=== PATIENT | female | born 1985 | race Caucasian/White ===

== ENCOUNTER 2016-03-22 10:31 | Emergency (ER) | payer OTHER ==
[2016-03-22 10:58] LABS: Collection Type VOID
[2016-03-22 11:03] LABS: COMPLETE URINE MICROSCOPIC? YES
--- NOTE | 2016-03-22 11:03 | ERPHSYRPT ---
- History of Present Illness Time Seen by Provider: 03/22/16 10:45 Source: patient Exam Limitations: no limitations Patient Subjective Stated Complaint: urinary s/s for 2 days Triage Nursing Assessment: frequency with urination for 2 days with minimal output. denies pain with urination. diarrhea stools x4 for past 24 hours. 'it feels like there is a phone vibrating in my crotch area'. 12 weeks with 3rd child Physician History: at 12 weeks uncomplicated now. Prior deliveries d/t FTP with G1. US shows normal per pt. report. She C/O dysuria with frequency now. No vaginal cramping or bleeding. Timing/Duration: day(s) (2) Activites at Onset: none Quality: aching Onset Location: suprapubic Pain Radiation: none Severity of Pain-Max: mild Severity of Pain-Current: mild Sexual intercourse history: non-contributory Modifying Factors: Improves With: nothing Allergies/Adverse Reactions: naproxen Allergy (Verified 03/22/16 10:43) Home Medications: Labetalol HCl 100 mg [Trandate 100 MG] 100 mg PO BID 03/13/16 [History] Vits W-Ca,Fe,FA(<1Mg) [] 1 tab PO DAILY 03/13/16 [History] Hx Tetanus, Diphtheria Vaccination/Date Given: Yes Hx Influenza Vaccination/Date Given: No Hx Pneumococcal Vaccination/Date Given: No - Review of Systems Constitutional: No Symptoms Eyes: No Symptoms Ears, Nose, & Throat: No Symptoms Respiratory: No Symptoms Cardiac: No Symptoms Abdominal/Gastrointestinal: Abdominal Pain Genitourinary Symptoms: Dysuria, Frequency Musculoskeletal: No Symptoms Skin: No Symptoms Neurological: No Symptoms Psychological: No Symptoms Endocrine: No Symptoms Hematologic/Lymphatic: No Symptoms Immunological/Allergic: No Symptoms - Past Medical History Pertinent Past Medical History: Yes Cardiac History: Hypertension Psycho-Social History: Depression - Past Surgical History Past Surgical History: Yes Female Surgical History: Section - Social History Smoking Status: Never smoker Exposure to second hand smoke: Yes Drug Use: none Patient Lives Alone: No - Female History Expected Date of Delivery: 09/30/16 - Nursing Vital Signs Nursing Vital Signs: Initial Vital Signs Temperature 98.2 F Temperature Source Oral Pulse Rate 96 Respiratory Rate 18 Blood Pressure 144/92 Pain Intensity 0 - Physical Exam General Appearance: mild distress Eye Exam: PERRL/EOMI, eyes nml inspection Ears, Nose, Throat Exam: normal ENT inspection, pharynx normal Neck Exam: normal inspection, non-tender, supple, full range of motion Respiratory Exam: normal breath sounds, lungs clear Cardiovascular Exam: regular rate/rhythm, normal heart sounds, normal peripheral pulses Gastrointestinal/Abdomen Exam: soft, normal bowel sounds, tenderness (suprapubic ) Back Exam: CVA tenderness Extremity Exam: normal inspection, normal range of motion Neurologic Exam: alert, oriented x 3, cooperative Skin Exam: normal color, warm, dry SpO2 Interpretation: normal SpO2: 96 Oxygen Delivery: Room Air - Course Nursing assessment & vital signs reviewed: Yes Ordered Tests: Active Orders 24 hr Category Date Time Status Clean Catch Urine Specimen STAT Care 03/22/16 10:46 Active UA Stat Lab 03/22/16 10:46 Ordered - Progress Air Movement: good Blood Culture(s) Obtained: No Antibiotics given: Yes Counseled pt/family regarding: lab results, diagnosis, need for follow-up (OB 1 week) - Departure Time of Disposition: 11:15 Departure Disposition: Home Clinical Impression: UTI (urinary tract infection) in in second trimester Condition: Stable Critical Care Time: No
[2016-03-22 11:11] LABS: Bacteria MODERATE /HPF (NEGATIVE); Epithelial Cells MANY /HPF (FEW); WBC 50-100 /HPF (0-5)
[2016-03-22 11:30] VITALS: BP 148/87; PULSE 95; O2SAT 98
== END 2016-03-22 11:35 | disposition home or self-care (01) ==
LOC: ED 10:31
DX: O23.42 Unspecified infection of urinary tract in pregnancy, second trimester (principal)
CPT/HCPCS: 81000; 99283

== ENCOUNTER 2016-04-17 17:56 | Emergency (ER) | payer OTHER ==
[2016-04-17] MEDS ORDERED: Sodium Chloride 0.9% 1000 ML 1,000 ML IV STA ×2 (18:43→19:46)
[2016-04-17] MEDS ORDERED: Zofran 4 MG/2 ML VIAL IV ONE (18:43)
--- NOTE | 2016-04-17 18:52 | ERPHSYRPT ---
- History of Present Illness Time Seen by Provider: 04/17/16 18:30 Source: patient Exam Limitations: clinical condition Patient Subjective Stated Complaint: pt states she is 16 weeks and began vomiting for the past 2 weeks. pt became concerned today because she began having pelvic pain. denies any vaginal bleeding. pt states she was seen at [facility] ER on 04/14/16 for vomiting after eating seafood. Triage Nursing Assessment: pt pink, warm, dry. abdomen obese. mucus membranes moist. pt afebrile. Physician History: PATIENT IS A -3, PARA-2 16 WEEK GESTATION, COMPLAINS OF NAUSEA OVER THE PAST 2 WEEKS, EMESIS X 2 TODAY, HAS POOR APPETITE, HAS INGESTED VERY LITTLE FLUIDS. DENEIS FEVER, COUGH, DIARRHEA, VAGINAL BLEEDING OR DISCHARGE. Timing/Duration: day(s) Associated Symptoms: nausea, vomiting Allergies/Adverse Reactions: naproxen Allergy (Verified 04/17/16 18:14) Home Medications: Labetalol HCl 100 mg [Trandate 100 MG] 100 mg PO BID 03/13/16 [History] Vits W-Ca,Fe,FA(<1Mg) [] 1 tab PO DAILY 03/13/16 [History] Hx Tetanus, Diphtheria Vaccination/Date Given: Yes (up to date) Hx Influenza Vaccination/Date Given: No Hx Pneumococcal Vaccination/Date Given: No Immunizations Up to Date: Yes - Review of Systems Constitutional: No Fever, No Chills Eyes: No Symptoms Ears, Nose, & Throat: No Symptoms Respiratory: No Symptoms, No Cough, No Dyspnea Cardiac: No Symptoms, No Chest Pain, No Edema, No Syncope Abdominal/Gastrointestinal: Nausea, Vomiting, No Abdominal Pain, No Diarrhea Genitourinary Symptoms: No Symptoms, No Dysuria Musculoskeletal: No Symptoms, No Back Pain, No Neck Pain Skin: No Rash Neurological: No Dizziness, No Focal Weakness, No Sensory Changes Psychological: No Symptoms Endocrine: No Symptoms All Other Systems: Reviewed and Negative - Past Medical History Pertinent Past Medical History: Yes Cardiac History: Hypertension Psycho-Social History: Depression - Past Surgical History Past Surgical History: Yes Female Surgical History: Section - Social History Smoking Status: Former smoker Exposure to second hand smoke: No Drug Use: none Patient Lives Alone: No - Female History Hx Last Menstrual Period: dec 25 2015 Expected Date of Delivery: 09/30/16 Gestational Age: 16 - Nursing Vital Signs Nursing Vital Signs: Initial Vital Signs Temperature 98.5 F Temperature Source Oral Pulse Rate 84 Respiratory Rate 16 Blood Pressure [Right Arm] 136/69 Pain Intensity 3 - Physical Exam General Appearance: no apparent distress, alert Eye Exam: PERRL/EOMI, eyes nml inspection Ears, Nose, Throat Exam: normal ENT inspection, TMs normal, pharynx normal, moist mucous membranes Neck Exam: normal inspection, non-tender, supple, full range of motion Respiratory Exam: normal breath sounds, lungs clear, No respiratory distress Cardiovascular Exam: regular rate/rhythm, normal heart sounds, normal peripheral pulses Gastrointestinal/Abdomen Exam: soft, normal bowel sounds, other (GRAVID, HEART TONES 140'S), No tenderness, No mass Pelvic Exam: not done Back Exam: normal inspection, normal range of motion, No CVA tenderness, No vertebral tenderness Extremity Exam: normal inspection, normal range of motion, pelvis stable Neurologic Exam: alert, oriented x 3, cooperative, normal mood/affect, nml cerebellar function, nml station & gait, sensation nml, No motor deficits Skin Exam: normal color, warm, dry, No rash Lymphatic Exam: No adenopathy SpO2 Interpretation: normal SpO2: 98 Oxygen Delivery: Room Air Ordered Tests: Active Orders 24 hr Category Date Time Status Heart Tones-ED STAT Care 04/17/16 18:46 Active IV Insertion STAT Care 04/17/16 18:43 Active BMP Stat Lab 04/17/16 18:55 Completed CBC W DIFF Stat Lab 04/17/16 18:55 Completed Manual Differential NC Stat Lab 04/17/16 18:55 Completed UA W/ MICROSCOPIC Stat Lab 04/17/16 18:55 Completed Medication Summary Discontinued Medications Generic Name Dose Route Start Last Admin Trade Name Freq PRN Reason Stop Dose Admin Sodium Chloride 1,000 mls @ 999 mls/hr 04/17/16 18:43 04/17/16 19:00 Sodium Chloride 0.9% 1000 Ml IV 04/17/16 19:43 999 mls/hr .Q1H1M STA Administration Sodium Chloride Confirm 04/17/16 18:56 Sodium Chloride 0.9% 1000 Ml Administered 04/17/16 18:57 Dose 1,000 mls @ ud .ROUTE .STK-MED ONE Sodium Chloride 1,000 mls @ 999 mls/hr 04/17/16 19:46 04/17/16 19:52 Sodium Chloride 0.9% 1000 Ml IV 04/17/16 20:46 999 mls/hr .Q1H1M STA Administration Sodium Chloride Confirm 04/17/16 19:49 Sodium Chloride 0.9% 1000 Ml Administered 04/17/16 19:50 Dose 1,000 mls @ ud .ROUTE .STK-MED ONE Ondansetron HCl 4 mg 04/17/16 18:43 04/17/16 19:00 Zofran 4 Mg/2 Ml Vial IV 04/17/16 18:44 4 mg STAT ONE Administration Ondansetron HCl Confirm 04/17/16 18:56 Zofran 4 Mg/2 Ml Vial Administered 04/17/16 18:57 Dose 4 mg .ROUTE .STK-MED ONE Lab/Rad Data: Laboratory Result Diagrams 04/17/16 18:55 04/17/16 18:55 Laboratory Results 04/17/16 04/17/16 04/17/16 Range/Units 18:55 18:55 18:55 WBC 17.7 H (4.0-10.5) K/mm3 RBC 4.25 (4.1-5.4) M/mm3 Hgb 11.3 L (12.0-16.0) gm/dl Hct 35.0 (35-47) % MCV 82.4 (78-100) fl MCH 26.5 (26-32) pg MCHC 32.3 (32-36) g/dl RDW 16.7 H (11.5-14.0) % Plt Count 311 (150-450) K/mm3 MPV 10.5 H (6-9.5) fl Segmented Neutrophils 69 H (36.0-66.0) % Lymphocytes (Manual) 25 (24-44) % Monocytes (Manual) 6 (0.0-12.0) % Platelet Estimate NORMAL (NORMAL) Anisocytosis 1+ Sodium 134 L (136-145) mEq/L Potassium 3.4 L (3.5-5.1) mEq/L Chloride 102 (98-107) mEq/L Carbon Dioxide 24.6 (21-32) mEq/L Anion Gap 10.9 (5-15) MEQ/L BUN 9 (9-20) mg/dL Creatinine 0.68 (0.55-1.30) mg/dl Estimated GFR > 60 ML/MIN Glucose 80 (70-110) MG/DL Calcium 8.8 (8.5-10.1) mg/dL Ur Collection Type CCMS Urine Color YELLOW (YELLOW) Urine Appearance CLEAR (CLEAR) Urine pH 5.5 (5-6) Ur Specific [place] 1.025 (1.005-1.025) Urine Protein NEGATIVE (Negative) Urine Glucose (UA) NEGATIVE (NEGATIVE) mg/dL Urine Ketones NEGATIVE (NEGATIVE) Urine Nitrite NEGATIVE (NEGATIVE) Urine Bilirubin NEGATIVE (NEGATIVE) Urine Urobilinogen 0.2 (0-1) mg/dL Urine WBC (Auto) SMALL (NEGATIVE) Urine RBC (Auto) NEGATIVE (0-5) [place]/ul Urine Microscopic RBC 0-2 (0-2) /HPF Urine Microscopic WBC 2-5 (0-5) /HPF Ur Epithelial Cells MODERATE (FEW) /HPF Urine Bacteria MODERATE (NEGATIVE) /HPF Specimen Received 04-17-16 1921 - Progress Progress: improved Progress Note: 04/17/16 18:51 PATIENT GIVEN IV NORMAL SALINE 1 LITER/HR X 2, ZOFRAN 4MG IV Counseled pt/family regarding: lab results, diagnosis, need for follow-up - Departure Time of Disposition: 21:10 Departure Disposition: Home Clinical Impression: HYPEREMESIS GRAVIDARUM Condition: Stable Critical Care Time: No Additional Instructions: DRINK PLENTY OF FLUIDS. ZOFRAN 4MG EVERY 4 HOURS FOR NAUSEA AND PHENERGAN SUPPOSITORY 25MG EVERY 4 HOURS NEEDED FOR NAUSEA. CONSULT YOUR FAMILY PHYSICIAN FOR EVALUATION IN 1 WEEK. Prescriptions: Ondansetron [Zofran Odt] 4 mg PO Q4H PRN PRN #6 tab.rapdis PRN Reason: Nausea Promethazine HCl 25 mg Supp [Phenergan 25 mg Supp] 25 mg NV Q4H PRN PRN # 10 supp.rect PRN Reason: Nausea
[2016-04-17] MEDS ORDERED: Sodium Chloride 0.9% 1000 ML 1,000 ML ONE ×2 (18:56→19:49)
[2016-04-17] MEDS ORDERED: Zofran 4 MG/2 ML VIAL ONE (18:56)
[2016-04-17 19:02] LABS: Mean Cell Volume 82.4 fl (78-100); Mean Platelet Volume 10.5 fl (6-9.5); Platelet Count 311 K/mm3 (150-450); Red Blood Count 4.25 M/mm3 (4.1-5.4); Red Cell Distribution Width 16.7 % (11.5-14.0); White Blood Count 17.7 K/mm3 (4.0-10.5)
[2016-04-17 19:05] LABS: Mean Corpuscular Hemoglobin 26.5 pg (26-32)
[2016-04-17 19:19] LABS: ANION GAP 10.9 MEQ/L (5-15); BLOOD UREA NITROGEN 9 mg/dL (9-20); CHLORIDE 102 mEq/L (98-107); Carbon Dioxide 24.6 mEq/L (21-32); Glucose 80 MG/DL (70-110); Potassium 3.4 mEq/L (3.5-5.1); SODIUM 134 mEq/L (136-145)
[2016-04-17 19:32] LABS: COMPLETE URINE MICROSCOPIC? YES; Collection Type CCMS; Ph 5.5 (5-6)
[2016-04-17 19:33] LABS: Bacteria MODERATE /HPF (NEGATIVE); Epithelial Cells MODERATE /HPF (FEW)
[2016-04-17 20:18] LABS: Total Cells Counted 100
[2016-04-17 20:20] LABS: ANISOCYTOSIS 1+; Platelet Estimate NORMAL (NORMAL)
[2016-04-17 21:28] VITALS: BP 127/80; PULSE 75; O2SAT 100
== END 2016-04-17 21:27 | disposition home or self-care (01) ==
LOC: ED 17:56
DX: O21.0 Mild hyperemesis gravidarum (principal)
CPT/HCPCS: 36000; 36415; 80048; 81000; 85025; 96360; 96361; 96374; 99283; J2405

== ENCOUNTER 2016-05-23 10:20 | Observation (INO) | payer OTHER ==
[2016-05-23 11:32] LABS: Bacteria FEW /HPF (NEGATIVE); COMPLETE URINE MICROSCOPIC? YES; Collection Type VOID; Epithelial Cells MODERATE /HPF (FEW); Ph 5.5 (5-6); WBC 15-25 /HPF (0-5)
[2016-05-23 13:12] VITALS: BP 129/71; PULSE 80
== END 2016-05-23 12:30 | disposition home or self-care (01) ==
LOC: OB 10:20
PROVIDERS: ADMIT Family Medicine; ATTEND Family Medicine
DX: Z34.82 Encounter for supervision of other normal pregnancy, second trimester (principal)
CPT/HCPCS: 80307; 81000; G0378

== ENCOUNTER 2016-05-27 08:53 | Observation (INO) | payer OTHER ==
[2016-05-27 09:21] VITALS: BP 135/74; PULSE 92
[2016-05-27 10:12] LABS: COMPLETE URINE MICROSCOPIC? YES; Collection Type VOID; Ph 5.5 (5-6)
[2016-05-27 10:13] LABS: Bacteria FEW /HPF (NEGATIVE); Epithelial Cells FEW /HPF (FEW); WBC 15-25 /HPF (0-5)
--- NOTE | 2016-05-27 21:56 | XRAY ---
Indication: Vaginal bleeding. Two-dimensional OB ultrasound performed. Comparison: May 04, 2016. Again there is a single viable intrauterine in variable lie. Normal four chamber heart with heart rate 131 bpm. Normal three-vessel cord and cord insertion previously documented. Images of the head, spine, stomach, kidneys, and bladder appear unremarkable. Placenta is anterior without abruption/previa. Cervical length measures 4.7 cm. BPD measures 5.52 cm corresponding to 22 weeks 6 days. HC measures 20.14 cm corresponding to 22 weeks 2 days. AC measures 16.94 cm corresponding to 22 weeks 0 days. FL measures 3.68 cm corresponding to 21 weeks 5 days. GATITO is 16.4 cm. Impression: Again single viable intrauterine with mean gestational age 22 weeks 2 days. No new/acute findings. Comment: Preliminary report was given.
== END 2016-05-27 12:45 | disposition home or self-care (01) ==
LOC: OB 08:53
PROVIDERS: ADMIT Family Medicine; ATTEND Family Medicine
DX: Z34.82 Encounter for supervision of other normal pregnancy, second trimester (principal)
CPT/HCPCS: 76805; 80307; 81000; G0378

== ENCOUNTER 2016-06-08 02:35 | Observation (INO) | payer OTHER ==
[2016-06-08] MEDS ORDERED: NORCO 5/325 MG PO ONE (03:31)
[2016-06-08] MEDS ORDERED: APRESOLINE 20 MG/ML INJ IV PRN (03:32)
[2016-06-08] MEDS ORDERED: NORCO 5/325 MG ONE (03:34)
[2016-06-08 04:02] LABS: Mean Cell Volume 84.8 fl (78-100); Mean Corpuscular Hemoglobin 27.1 pg (26-32); Mean Platelet Volume 10.7 fl (6-9.5); Platelet Count 281 K/mm3 (150-450); Red Blood Count 3.87 M/mm3 (4.1-5.4); Red Cell Distribution Width 15.2 % (11.5-14.0)
[2016-06-08 04:28] LABS: ALBUMIN 2.5 g/dL (3.4-5.0); ALKALINE PHOSPHATASE 51 U/L (46-116); ANION GAP 14.2 MEQ/L (5-15); BLOOD UREA NITROGEN 9 mg/dL (9-20); CHLORIDE 105 mEq/L (98-107); Carbon Dioxide 24.3 mEq/L (21-32); Glucose 109 MG/DL (70-110); Potassium 3.5 mEq/L (3.5-5.1); SGOT/AST 16 U/L (15-37); SGPT/ALT 14 U/L (12-78); SODIUM 140 mEq/L (136-145); Total Protein 6.6 gm/dL (6.4-8.2)
[2016-06-08 04:36] LABS: Bacteria FEW /HPF (NEGATIVE); COMPLETE URINE MICROSCOPIC? YES; Collection Type CLEAN CATCH; Epithelial Cells MODERATE /HPF (FEW); Mucus SLIGHT /HPF (NEGATIVE)
[2016-06-08 04:45] LABS: BILIRUBIN,TOTAL < 0.1 mg/dL (0.2-1.0)
[2016-06-08 05:40] LABS: ATYPICAL LYMPHS 2 %; Eosinophil 1 % (0.00-3.0); Platelet Estimate NORMAL (NORMAL); Total Cells Counted 100
[2016-06-08 09:02] VITALS: BP 143/75; PULSE 93
--- NOTE | 2016-06-08 09:10 | PCM.SSS ---
History of Present Illness - Chief Complaint Chief Complaint: OB CHECK History of Present Illness: is a 31 year old female at 23 5/7 wks EGA with chronic hypertension who presented last night with headache, she also complained of visual changes. She is feeling much better overnight, bp has been 130's or 140' s this morning. labs are reassuring. - Review of Systems Constitutional: No Fever, No Chills Respiratory: No Cough, No Short Of Breath Cardiac: No Chest Pain, No Edema, No Syncope Abdominal/Gastrointestinal: No Abdominal Pain, No Nausea, No Vomiting, No Diarrhea Genitourinary Symptoms: No Dysuria Neurological: Headache All Other Systems: Reviewed and Negative Medications & Allergies Home Medications: Home Medication List Labetalol HCl 100 mg [Trandate 100 MG] 100 mg PO BID 03/13/16 [History Confirmed 06/08/16] Vits W-Ca,Fe,FA(<1Mg) [] 1 tab PO DAILY 03/13/16 [History Confirmed 06/08/16] Allergies/Adverse Reactions: Allergies Allergy/AdvReac Type Severity Reaction Status Date / Time naproxen Allergy Verified 06/08/16 03:03 - Past Medical History Past Medical History: Yes Cardiac History: Hypertension Pyscho-Social History: Depression Comment: reports she used to have depression. no diff at this time per pt report - Female History Expected Date of Delivery: 09/30/16 - Past Surgical History Past Surgical History: Yes Female Surgical History: Section Other Surgical History: 2 c/sections - Social History Smoking Status: Never smoker Exposure to second hand smoke: No Alcohol: None Drug Use: none - Physical Exam Vital Signs: Vital Signs - 24 hr Temp Pulse Resp BP BP 06/08/16 08:00 98.8 F 93 H 18 143/75 06/08/16 05:55 87 139/72 06/08/16 04:51 109 H 142/74 06/08/16 03:37 89 136/76 06/08/16 03:07 97.5 F 88 160/80 General Appearance: no apparent distress, alert Eye Exam: PERRL/EOMI, eyes nml inspection Respiratory Exam: normal breath sounds, lungs clear, No respiratory distress Cardiovascular Exam: regular rate/rhythm, normal heart sounds, normal peripheral pulses Gastrointestinal/Abdomen Exam: soft, normal bowel sounds, No tenderness, No mass Extremity Exam: normal inspection, normal range of motion, pelvis stable, other (DTR 2+BLE), No pedal edema Skin Exam: normal color, warm, dry, No rash Results - Labs Lab/Micro Results: Lab Results-Last 24 Hours 06/08/16 06/08/16 06/08/16 Range/Units 03:30 03:45 03:45 WBC 16.0 H (4.0-10.5) K/mm3 RBC 3.87 L (4.1-5.4) M/mm3 Hgb 10.5 L (12.0-16.0) gm/dl Hct 32.8 L (35-47) % MCV 84.8 (78-100) fl MCH 27.1 (26-32) pg MCHC 32.0 (32-36) g/dl RDW 15.2 H (11.5-14.0) % Plt Count 281 (150-450) K/mm3 MPV 10.7 H (6-9.5) fl Segmented Neutrophils 64 (36.0-66.0) % Lymphocytes (Manual) 25 (24-44) % Monocytes (Manual) 8 (0.0-12.0) % Eosinophils (Manual) 1 (0.00-3.0) % Differential Comment NORMAL Atypical Lymphocytes 2 % Platelet Estimate NORMAL (NORMAL) Sodium 140 (136-145) mEq/L Potassium 3.5 (3.5-5.1) mEq/L Chloride 105 (98-107) mEq/L Carbon Dioxide 24.3 (21-32) mEq/L Anion Gap 14.2 (5-15) MEQ/L BUN 9 (9-20) mg/dL Creatinine 0.68 (0.55-1.30) mg/dl Estimated GFR > 60 ML/MIN Glucose 109 (70-110) MG/DL Uric Acid 3.3 (2.6-6.0) mg/dL Calcium 8.2 L (8.5-10.1) mg/dL Total Bilirubin < 0.1 L (0.2-1.0) mg/dL AST 16 (15-37) U/L ALT 14 (12-78) U/L Alkaline Phosphatase 51 (46-116) U/L Serum Total Protein 6.6 (6.4-8.2) gm/dL Albumin 2.5 L (3.4-5.0) g/dL Ur Collection Type CLEAN CATCH Urine Color YELLOW (YELLOW) Urine Appearance CLOUDY (CLEAR) Urine pH 5.0 (5-6) Ur Specific [place] 1.020 (1.005-1.025) Urine Protein 30 (Negative) Urine Glucose (UA) NEGATIVE (NEGATIVE) mg/dL Urine Ketones NEGATIVE (NEGATIVE) Urine Nitrite NEGATIVE (NEGATIVE) Urine Bilirubin NEGATIVE (NEGATIVE) Urine Urobilinogen 0.2 (0-1) mg/dL Urine WBC (Auto) TRACE (NEGATIVE) Urine RBC (Auto) NEGATIVE (0-5) [place]/ul Urine Microscopic WBC 2-5 (0-5) /HPF Ur Epithelial Cells MODERATE (FEW) /HPF Urine Bacteria FEW (NEGATIVE) /HPF Urine Mucus SLIGHT (NEGATIVE) /HPF Specimen Received 06/08/16:0330 Assessment/Plan (1) Chronic hypertension Current Visit: Yes Status: Acute Assessment & Plan: workup benign, better control at this time. will continue Labetalol 100mg bid. advised bedrest Code(s): I10 - ESSENTIAL (PRIMARY) HYPERTENSION (2) Current Visit: Yes Status: Acute Code(s): Z33.1 - STATE, INCIDENTAL Hospital Summary - Vitals & Intake/Output Vital Signs: Vital Signs Temperature 98.8 F 06/08/16 08:00 Pulse Rate 93 H 06/08/16 08:00 Respiratory Rate 18 06/08/16 08:00 Blood Pressure 143/75 06/08/16 08:00 O2 Sat by Pulse Oximetry Intake & Output: Intake & Output 06/05/16 06/06/16 06/07/16 06/08/16 11:59 11:59 11:59 11:59 Weight 122.47 kg - Lab Result Diagrams: 06/08/16 03:45 06/08/16 03:45 Lab Results-Last 24 Hrs: Lab Results-Last 24 Hours 06/08/16 06/08/16 06/08/16 Range/Units 03:30 03:45 03:45 WBC 16.0 H (4.0-10.5) K/mm3 RBC 3.87 L (4.1-5.4) M/mm3 Hgb 10.5 L (12.0-16.0) gm/dl Hct 32.8 L (35-47) % MCV 84.8 (78-100) fl MCH 27.1 (26-32) pg MCHC 32.0 (32-36) g/dl RDW 15.2 H (11.5-14.0) % Plt Count 281 (150-450) K/mm3 MPV 10.7 H (6-9.5) fl Segmented Neutrophils 64 (36.0-66.0) % Lymphocytes (Manual) 25 (24-44) % Monocytes (Manual) 8 (0.0-12.0) % Eosinophils (Manual) 1 (0.00-3.0) % Differential Comment NORMAL Atypical Lymphocytes 2 % Platelet Estimate NORMAL (NORMAL) Sodium 140 (136-145) mEq/L Potassium 3.5 (3.5-5.1) mEq/L Chloride 105 (98-107) mEq/L Carbon Dioxide 24.3 (21-32) mEq/L Anion Gap 14.2 (5-15) MEQ/L BUN 9 (9-20) mg/dL Creatinine 0.68 (0.55-1.30) mg/dl Estimated GFR > 60 ML/MIN Glucose 109 (70-110) MG/DL Uric Acid 3.3 (2.6-6.0) mg/dL Calcium 8.2 L (8.5-10.1) mg/dL Total Bilirubin < 0.1 L (0.2-1.0) mg/dL AST 16 (15-37) U/L ALT 14 (12-78) U/L Alkaline Phosphatase 51 (46-116) U/L Serum Total Protein 6.6 (6.4-8.2) gm/dL Albumin 2.5 L (3.4-5.0) g/dL Ur Collection Type CLEAN CATCH Urine Color YELLOW (YELLOW) Urine Appearance CLOUDY (CLEAR) Urine pH 5.0 (5-6) Ur Specific [place] 1.020 (1.005-1.025) Urine Protein 30 (Negative) Urine Glucose (UA) NEGATIVE (NEGATIVE) mg/dL Urine Ketones NEGATIVE (NEGATIVE) Urine Nitrite NEGATIVE (NEGATIVE) Urine Bilirubin NEGATIVE (NEGATIVE) Urine Urobilinogen 0.2 (0-1) mg/dL Urine WBC (Auto) TRACE (NEGATIVE) Urine RBC (Auto) NEGATIVE (0-5) [place]/ul Urine Microscopic WBC 2-5 (0-5) /HPF Ur Epithelial Cells MODERATE (FEW) /HPF Urine Bacteria FEW (NEGATIVE) /HPF Urine Mucus SLIGHT (NEGATIVE) /HPF Specimen Received 06/08/16:0330 - Discharge Disposition: Home, Self-Care Condition: Stable Prescriptions: Continue Labetalol HCl 100 mg [Trandate 100 MG] 100 mg PO BID Vits W-Ca,Fe,FA(<1Mg) [] 1 tab PO DAILY Follow up with: JOHN RAY MD [Primary Care Provider] - 1 Week
[2016-06-08] MEDS ORDERED: Trandate 100 MG PO SCH (10:00)
[2016-06-09 10:02] LABS: 24 HR TOT. PROTEIN CALCULATION 0.255 GM/DAY (0.04-0.15)
== END 2016-06-08 09:50 | disposition home or self-care (01) ==
LOC: MED SURG 02:35
PROVIDERS: ADMIT Family Medicine; ATTEND Family Medicine
DX: I10 Essential (primary) hypertension (principal); Z33.1 Pregnant state, incidental
CPT/HCPCS: 36415; 80053; 81000; 84156; 84550; 85025; 87086; G0378; A9270-GY

== ENCOUNTER 2016-06-11 20:26 | Observation (INO) | payer OTHER ==
[2016-06-11 21:11] LABS: Collection Type CLEAN CATCH
[2016-06-11 21:12] LABS: Bacteria MODERATE /HPF (NEGATIVE); COMPLETE URINE MICROSCOPIC? YES; Epithelial Cells MODERATE /HPF (FEW)
[2016-06-11] MEDS ORDERED: TYLENOL EXTRA STRENGTH 500 MG PO PRN (22:28)
[2016-06-11 23:10] LABS: Mean Cell Volume 84.9 fl (78-100); Mean Platelet Volume 10.4 fl (6-9.5); Platelet Count 320 K/mm3 (150-450); Red Blood Count 3.92 M/mm3 (4.1-5.4); Red Cell Distribution Width 15.7 % (11.5-14.0)
[2016-06-11 23:21] LABS: Mean Corpuscular Hemoglobin 27.5 pg (26-32)
[2016-06-11 23:35] LABS: ALBUMIN 2.5 g/dL (3.4-5.0); ALKALINE PHOSPHATASE 49 U/L (46-116); ANION GAP 16.1 MEQ/L (5-15); BILIRUBIN,TOTAL 0.1 mg/dL (0.2-1.0); BLOOD UREA NITROGEN 12 mg/dL (9-20); CHLORIDE 106 mEq/L (98-107); Carbon Dioxide 23.2 mEq/L (21-32); Glucose 91 MG/DL (70-110); Potassium 3.9 mEq/L (3.5-5.1); SGOT/AST 14 U/L (15-37); SGPT/ALT 13 U/L (12-78); SODIUM 141 mEq/L (136-145); Total Protein 6.6 gm/dL (6.4-8.2)
[2016-06-11 23:50] LABS: BAND 3 % (0.0-2.0); Eosinophil 1 % (0.00-3.0); Platelet Estimate NORMAL (NORMAL); Total Cells Counted 100
[2016-06-12 09:15] VITALS: BP 139/65; PULSE 95
--- NOTE | 2016-06-12 09:45 | XRAY ---
Indication: Bleeding. 2-dimensional OB ultrasound performed. Comparison: May 27, 2016. Again there is a single viable intrauterine currently in transverse lie. Normal four-chamber heart with heart rate 147 bpm. Normal three-vessel cord and cord insertion. Images of the head, spine, stomach, kidneys, and bladder are unremarkable. Placenta again anterior without abruption/previa. Cervical length measures 4.8 cm. BPD measures 5.86 cm corresponding to 24 weeks 0 days. HC measures 23.06 cm corresponding to 25 weeks 1 day. AC measures 22.79 cm corresponding to 27 weeks 1 day. FL measures 4.63 cm corresponding to 25 weeks 3 days. G[place] is 10.3 cm. Impression: Again single viable intrauterine with mean gestational age 25 weeks 3 days. There has been progression in the with the fetus now measuring 7 days larger since initial exam of May 04, 2016. Nothing acute.
== END 2016-06-12 09:20 | disposition home or self-care (01) ==
LOC: OB 20:26
PROVIDERS: ADMIT Family Medicine; ATTEND Family Medicine
DX: Z34.82 Encounter for supervision of other normal pregnancy, second trimester (principal)
CPT/HCPCS: 36415; 76805; 80053; 80307; 81000; 85025; G0378; A9270-GY

== ENCOUNTER 2016-06-20 09:02 | Observation (INO) | payer OTHER ==
[2016-06-20 09:45] LABS: Mean Cell Volume 85.1 fl (78-100); Mean Platelet Volume 10.6 fl (6-9.5); Platelet Count 324 K/mm3 (150-450); Red Blood Count 4.23 M/mm3 (4.1-5.4); Red Cell Distribution Width 15.9 % (11.5-14.0); White Blood Count 16.2 K/mm3 (4.0-10.5)
[2016-06-20 09:54] LABS: Collection Type VOID
[2016-06-20 09:55] LABS: COMPLETE URINE MICROSCOPIC? YES; Ph 5.5 (5-6)
[2016-06-20 09:56] LABS: Mean Corpuscular Hemoglobin 27.1 pg (26-32)
[2016-06-20 10:04] LABS: Total Cells Counted 100
[2016-06-20 10:06] LABS: ANISOCYTOSIS 1+; Platelet Estimate NORMAL (NORMAL); Poikilocytosis 1+; Polychromasia 1+
[2016-06-20 10:11] LABS: Bacteria MODERATE /HPF (NEGATIVE); Epithelial Cells MODERATE /HPF (FEW); WBC 25-50 /HPF (0-5)
[2016-06-20 15:04] VITALS: BP 118/69; PULSE 100
== END 2016-06-20 14:35 | disposition home or self-care (01) ==
LOC: OB 09:02
PROVIDERS: ADMIT Family Medicine; ATTEND Family Medicine
DX: Z34.82 Encounter for supervision of other normal pregnancy, second trimester (principal)
CPT/HCPCS: 36415; 80053; 80307; 81000; 85025; G0378

== ENCOUNTER 2016-07-05 12:10 | Observation (INO) | payer OTHER ==
[2016-07-05 13:46] VITALS: BP 124/64; PULSE 103
== END 2016-07-05 14:05 | disposition home or self-care (01) ==
LOC: OB 12:10
PROVIDERS: ADMIT Family Medicine; ATTEND Family Medicine
DX: Z34.82 Encounter for supervision of other normal pregnancy, second trimester (principal)
CPT/HCPCS: 80307; G0378

== ENCOUNTER 2016-07-17 20:56 | Observation (INO) | payer OTHER ==
[2016-07-17 21:56] LABS: Collection Type CLEAN CATCH
[2016-07-17 21:57] LABS: Bacteria FEW /HPF (NEGATIVE); COMPLETE URINE MICROSCOPIC? YES; Epithelial Cells FEW /HPF (FEW); WBC 0-2 /HPF (0-5)
[2016-07-17 22:03] VITALS: PULSE 97
[2016-07-18 00:34] VITALS: BP 117/61
== END 2016-07-18 01:30 | disposition home or self-care (01) ==
LOC: OB 20:56
PROVIDERS: ADMIT Family Medicine; ATTEND Family Medicine
DX: Z34.83 Encounter for supervision of other normal pregnancy, third trimester (principal)
CPT/HCPCS: 80307; 81000; G0378

== ENCOUNTER 2016-07-26 16:33 | Observation (INO) | payer OTHER ==
[2016-07-26 17:05] VITALS: BP 127/73; PULSE 115
[2016-07-26 17:53] LABS: Collection Type CCMS; Ph 5.5 (5-6)
[2016-07-26 17:54] LABS: COMPLETE URINE MICROSCOPIC? YES
[2016-07-26 18:03] LABS: Bacteria MANY /HPF (NEGATIVE); Epithelial Cells MODERATE /HPF (FEW)
== END 2016-07-26 18:25 | disposition home or self-care (01) ==
LOC: OB 16:33
PROVIDERS: ADMIT Family Medicine; ATTEND Family Medicine
DX: Z34.83 Encounter for supervision of other normal pregnancy, third trimester (principal)
CPT/HCPCS: 80307; 81000; G0378

== ENCOUNTER 2019-03-17 21:02 | Emergency (ER) | payer OTHER ==
[2019-03-17] MEDS ORDERED: SUBLIMAZE 100 MCG/2 ML ONE (21:15)
[2019-03-17] MEDS: SUBLIMAZE 100 MCG/2 ML IV ONE (21:19)
[2019-03-17] MEDS ORDERED: Sodium Chloride 0.9% 1000 ML 1,000 ML ONE (21:22)
[2019-03-17] MEDS: Sodium Chloride 0.9% 1000 ML 1,000 ML IV STA (21:22)
[2019-03-17 21:52] LABS: Absolute Neutrophil Ct (ANC) 7.01 (1.4-6.9); BASOPHIL % 0.3 % (0.0-0.4); Basophil (Absolute #) 0.04 (0-0.4); Eosinophil % 1.3 % (0.00-5.0); Eosinophil (Absolute #) 0.17 (0-0.5); Hematocrit 38.2 % (35-47); Hemoglobin 11.9 gm/dl (12.0-16.0); Lymphocyte (Absolute #) 4.64 (1.0-4.6); Lymphocytes % 35.4 % (24.0-44.0); Mean Cell Volume 80.6 fl (78-100); Mean Corpuscular Hemoglobin 25.1 pg (26-32); Mean Corpuscular Hgb Concent. 31.2 g/dl (32-36); Mean Platelet Volume 10.9 fl (6-9.5); Monocyte (Absolute #) 1.24 (0.0-1.3); Monocytes % 9.5 % (0.0-12.0); Neutrophil % 53.5 % (36.0-66.0); Platelet Count 366 K/mm3 (150-450); Red Blood Count 4.74 M/mm3 (4.1-5.4); Red Cell Distribution Width 15.6 % (11.5-14.0); White Blood Count 13.1 K/mm3 (4.0-10.5)
[2019-03-17 21:59] LABS: INR 1.13 (0.8-3.0); PROTIME 12.8 SECONDS (9.95-12.35)
[2019-03-17 22:02] LABS: PTT 33.3 SECONDS (25.3-37.0)
[2019-03-17 22:12] LABS: ALBUMIN 3.8 g/dL (3.5-5.0); ALKALINE PHOSPHATASE 53 U/L (38-126); BLOOD UREA NITROGEN 19 mg/dL (7-17); CHLORIDE 107 mmol/L (98-107); CK-Creatinine Phosphokinase 82 U/L (30-135); Calcium 9.2 mg/dL (8.4-10.2); Carbon Dioxide 26 mmol/L (22-30); Creatinine 1 0.66 mg/dL (0.52-1.04); Glucose 130 mg/dL (74-106); NT PRO BNP 106 pg/mL (0-450); Potassium 3.3 mmol/L (3.5-5.1); SGOT/AST 24 U/L (14-36); SGPT/ALT 31 U/L (0-35); SODIUM 138 mmol/L (137-145); Total Protein 7.2 g/dL (6.3-8.2)
--- NOTE | 2019-03-18 00:03 | ERPHSYRPT ---
- History of Present Illness Time Seen by Provider: 03/17/19 21:20 Historian: patient Exam Limitations: no limitations Patient Subjective Stated Complaint: pt states that chest pain started last night, pt states that the pain is constant, pain has increased today, pt states that she was sob today, pt states chest pain that radiated down left arm, ems states that pt has 4 aspirin and 2 nitros in route, pt states that she has been sweating all day Triage Nursing Assessment: pt came into the er via ambulance, pt is obese, pt states chest pain 4/10 that radiates down left arm, pt is hypertensive, clear lung sounds, heart tones clear Physician History: patient is a 34-year-old female who started with chest pain 24 hours ago. 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 She denies any nausea vomiting diaphoresis she has had some shortness of breath she has no history of coronary artery disease. Risk factors include a family history and hypertension. Chest pain is anterior without radiation Timing/Duration: hour(s) (24) Activities at Onset: none Quality: dullness, pressure Location: substernal Chest Pain Radiation: no radiation Severity of Pain-Max: mild Severity of Pain-Current: mild Modifying Factors: Improves With: nothing Associated Symptoms: shortness of breath Prior Chest Pain/Cardiac Workup: no prior cardiac workup Nitro Today/Relief: no nitro taken today Aspirin Treatment Today: 81 mg x 4 Allergies/Adverse Reactions: naproxen Allergy (Severe, Verified 07/17/16 21:26) Hives Itchy Hives Home Medications: Buspirone HCl 5 mg PO DAILY 03/17/19 [History] Escitalopram Oxalate [Lexapro] 20 mg PO DAILY 03/17/19 [History] Losartan Potassium [Cozaar] 100 mg PO DAILY 03/17/19 [History] Hx Tetanus, Diphtheria Vaccination/Date Given: Yes (up to date) Hx Influenza Vaccination/Date Given: No Hx Pneumococcal Vaccination/Date Given: No - Review of Systems Constitutional: No Fever, No Chills Eyes: No Symptoms Ears, Nose, & Throat: No Symptoms Respiratory: No Cough, No Dyspnea Cardiac: Chest Pain Abdominal/Gastrointestinal: No Abdominal Pain, No Nausea, No Vomiting, No Diarrhea Genitourinary Symptoms: No Dysuria Musculoskeletal: No Back Pain, No Neck Pain Skin: No Rash Neurological: No Dizziness, No Focal Weakness, No Sensory Changes Psychological: No Symptoms Endocrine: No Symptoms Hematologic/Lymphatic: No Symptoms Immunological/Allergic: No Symptoms - Past Medical History Pertinent Past Medical History: Yes Cardiac History: Hypertension Psycho-Social History: Anxiety, Depression Other Medical History: reports she used to have depression. no diff at this time per pt report - Past Surgical History Past Surgical History: Yes Female Surgical History: Section Other Surgical History: 3 c/sections - Social History Smoking Status: Never smoker Exposure to second hand smoke: No Drug Use: none Patient Lives Alone: No - Female History Hx Last Menstrual Period: 03/11/19 Hx Now: No - Nursing Vital Signs Nursing Vital Signs: Initial Vital Signs Temperature 98.1 F 03/17/19 21:07 Pulse Rate 88 03/17/19 21:07 Respiratory Rate 23 03/17/19 21:07 Blood Pressure 164/85 03/17/19 21:07 O2 Sat by Pulse Oximetry 94 L 03/17/19 21:07 Pain Scale Pain Intensity 6 - Physical Exam General Appearance: mild distress, alert Eye Exam: PERRL/EOMI, eyes nml inspection Ears, Nose, Throat Exam: normal ENT inspection, moist mucous membranes Neck Exam: normal inspection, non-tender, supple, full range of motion Respiratory Exam: normal breath sounds, lungs clear, No respiratory distress Cardiovascular Exam: regular rate/rhythm, normal heart sounds Gastrointestinal/Abdomen Exam: soft, No tenderness, No mass Back Exam: normal inspection, No CVA tenderness, No vertebral tenderness Extremity Exam: normal inspection, normal range of motion Neurologic Exam: alert, oriented x 3, cooperative, normal mood/affect, sensation nml, No motor deficits Skin Exam: normal color, warm, dry Lymphatic Exam: adenopathy SpO2 Interpretation: normal (andwhile he was 0A) SpO2: 94 O2 Delivery: Room Air - Course Nursing assessment & vital signs reviewed: Yes EKG Interpreted by Me: RATE, Sinus Rhythm, NORMAL AXIS ( her old boy was in), Non-specific ST Changes Ordered Tests: Active Orders 24 hr Category Date Time Status CHEST 1 VIEW (PORTABLE) Stat Exams 03/17/19 21:13 Taken CHEST WITH CONTRAST [CT] Stat Exams 03/17/19 22:11 Taken CBC W DIFF Stat Lab 03/17/19 21:50 Completed CK-Creatinine Phosphokinase Stat Lab 03/17/19 21:50 Completed CMP Stat Lab 03/17/19 21:50 Completed D-DIMER QUANTITATIVE Stat Lab 03/17/19 21:50 Completed HCG QUALITATIVE,SERUM Stat Lab 03/17/19 21:50 Completed NT PRO BNP Stat Lab 03/17/19 21:50 Completed PROTIME WITH INR Stat Lab 03/17/19 21:50 Completed PTT Stat Lab 03/17/19 21:50 Completed TROPONIN Q3H Lab 03/17/19 21:50 Completed TROPONIN Q3H Lab 03/18/19 00:15 Ordered TROPONIN Q3H Lab 03/18/19 03:15 Ordered TROPONIN Q3H Lab 03/18/19 06:15 Ordered TROPONIN Q3H Lab 03/18/19 09:15 Ordered Medication Summary Discontinued Medications Generic Name Dose Route Start Last Admin Trade Name Freq PRN Reason Stop Dose Admin Fentanyl Citrate 75 mcg 03/17/19 21:13 03/17/19 21:19 Sublimaze 100 Mcg/2 Ml IV 03/17/19 21:14 75 mcg STAT ONE Administration Fentanyl Citrate Confirm 03/17/19 21:15 Sublimaze 100 Mcg/2 Ml Administered 03/17/19 21:16 Dose 100 mcg .ROUTE .STK-MED ONE Sodium Chloride 1,000 mls @ 999 mls/hr 03/17/19 21:13 03/17/19 21:22 Sodium Chloride 0.9% 1000 Ml IV 03/17/19 22:13 999 mls/hr .Q1H1M STA Administration Sodium Chloride Confirm 03/17/19 21:22 Sodium Chloride 0.9% 1000 Ml Administered 03/17/19 21:23 Dose 1,000 mls @ ud .ROUTE .STK-MED ONE Lab/Rad Data: Laboratory Result Diagrams 03/17/19 21:50 03/17/19 21:50 Laboratory Results 03/17/19 03/17/19 03/17/19 Range/Units 21:50 21:50 21:50 WBC (4.0-10.5) K/mm3 RBC (4.1-5.4) M/mm3 Hgb (12.0-16.0) gm/dl Hct (35-47) % MCV (78-100) fl MCH (26-32) pg MCHC (32-36) g/dl RDW (11.5-14.0) % Plt Count (150-450) K/mm3 MPV (6-9.5) fl Gran % (36.0-66.0) % Eos # (Auto) (0-0.5) Absolute Lymphs (auto) (1.0-4.6) Absolute Monos (auto) (0.0-1.3) Lymphocytes % (24.0-44.0) % Monocytes % (0.0-12.0) % Eosinophils % (0.00-5.0) % Basophils % (0.0-0.4) % Absolute Granulocytes (1.4-6.9) Basophils # (0-0.4) PT 12.8 H (9.95-12.35) SECONDS INR 1.13 (0.8-3.0) APTT 33.3 (25.3-37.0) SECONDS D-Dimer 771 H* (215-500) ng/mL Sodium (137-145) mmol/L Potassium (3.5-5.1) mmol/L Chloride (98-107) mmol/L Carbon Dioxide (22-30) mmol/L Anion Gap (5-15) MEQ/L BUN (7-17) mg/dL Creatinine (0.52-1.04) mg/dL Estimated GFR ML/MIN Glucose (74-106) mg/dL Calcium (8.4-10.2) mg/dL Total Bilirubin (0.2-1.3) mg/dL AST (14-36) U/L ALT (0-35) U/L Alkaline Phosphatase (38-126) U/L Creatine Kinase (30-135) U/L Troponin I < 0.012 (0.000-0.034) ng/mL NT-Pro-B Natriuret Pep (0-450) pg/mL Serum Total Protein (6.3-8.2) g/dL Albumin (3.5-5.0) g/dL Serum , Qual NEGATIVE (Negative) 03/17/19 03/17/19 Range/Units 21:50 21:50 WBC 13.1 H (4.0-10.5) K/mm3 RBC 4.74 (4.1-5.4) M/mm3 Hgb 11.9 L (12.0-16.0) gm/dl Hct 38.2 (35-47) % MCV 80.6 (78-100) fl MCH 25.1 L (26-32) pg MCHC 31.2 L (32-36) g/dl RDW 15.6 H (11.5-14.0) % Plt Count 366 (150-450) K/mm3 MPV 10.9 H (6-9.5) fl Gran % 53.5 (36.0-66.0) % Eos # (Auto) 0.17 (0-0.5) Absolute Lymphs (auto) 4.64 H (1.0-4.6) Absolute Monos (auto) 1.24 (0.0-1.3) Lymphocytes % 35.4 (24.0-44.0) % Monocytes % 9.5 (0.0-12.0) % Eosinophils % 1.3 (0.00-5.0) % Basophils % 0.3 (0.0-0.4) % Absolute Granulocytes 7.01 H (1.4-6.9) Basophils # 0.04 (0-0.4) PT (9.95-12.35) SECONDS INR (0.8-3.0) APTT (25.3-37.0) SECONDS D-Dimer (215-500) ng/mL Sodium 138 (137-145) mmol/L Potassium 3.3 L (3.5-5.1) mmol/L Chloride 107 (98-107) mmol/L Carbon Dioxide 26 (22-30) mmol/L Anion Gap 8.0 (5-15) MEQ/L BUN 19 H (7-17) mg/dL Creatinine 0.66 (0.52-1.04) mg/dL Estimated GFR > 60.0 ML/MIN Glucose 130 H (74-106) mg/dL Calcium 9.2 (8.4-10.2) mg/dL Total Bilirubin 0.20 (0.2-1.3) mg/dL AST 24 (14-36) U/L ALT 31 (0-35) U/L Alkaline Phosphatase 53 (38-126) U/L Creatine Kinase 82 (30-135) U/L Troponin I (0.000-0.034) ng/mL NT-Pro-B Natriuret Pep 106 (0-450) pg/mL Serum Total Protein 7.2 (6.3-8.2) g/dL Albumin 3.8 (3.5-5.0) g/dL Serum , Qual (Negative) - Progress Progress: improved Air Movement: good Blood Culture(s) Obtained: No Antibiotics given: No - Departure Departure Disposition: Home Clinical Impression: Chest pain Condition: Stable Critical Care Time: No Referrals: JOHN RAY MD [Primary Care Provider] - Prescriptions: Cefdinir 300 mg PO BID 10 Days #20 capsule Prednisone 10 mg [Deltasone 10 mg] 20 mg PO BID 3 Days #6 tablet
[2019-03-18 00:05] VITALS: BP 122/76; PULSE 82
[2019-03-18 00:07] VITALS: O2SAT 94
--- NOTE | 2019-03-18 09:28 | XRAY ---
Indication: Chest pain. Comparison: October 17, 2014. Portable chest again demonstrates normal heart, lungs, and bony thorax.
--- NOTE | 2019-03-18 09:30 | XRAY ---
Indication: Chest pain. Elevated d-dimer. Multiple contiguous axial images obtained through the chest using 80 cc Isovue 370 contrast and PE protocol. Comparison: None. There is suboptimal opacification of the pulmonary arteries limiting evaluation of the more distal lobar and segmental branches. No obvious central pulmonary embolus. Heart is not enlarged. Aorta is normal in course and caliber. No pathologic mediastinal/hilar lymphadenopathy. Lungs are inflated and clear. Bony thorax intact. Limited upper abdomen demonstrates fatty liver and indeterminate bilateral adrenal gland calcifications. Impression: 1. Pulmonary embolus evaluation limited by suboptimal opacification. No obvious central pulmonary embolus. 2. No acute cardiopulmonary abnormalities. 3. Incidental fatty liver and indeterminate bilateral adrenal gland calcifications. Comment: Preliminary interpretation was made by [facility]. No critical discrepancy. CT DI 31.86
== END 2019-03-18 00:38 | disposition home or self-care (01) ==
LOC: ED 21:02
DX: R07.9 Chest pain, unspecified (principal)
CPT/HCPCS: 36415; 71045; 71260; 80053; 81025; 82550; 83880; 84484; 85025; 85379; 85610; 85730; 96374; 99284; J3010

== ENCOUNTER 2019-08-29 21:02 | Emergency (ER) | payer OTHER ==
[2019-08-29] MEDS ORDERED: Hydromorphone 1 mg/ml Ampule IV ONE (21:31)
[2019-08-29] MEDS ORDERED: BENADRYL 50 MG/ML IV ONE (21:31)
[2019-08-29] MEDS ORDERED: Inapsine 5 MG/2 ML IV ONE (21:31)
[2019-08-29] MEDS ORDERED: Sodium Chloride 0.9% 1000 ML 1,000 ML IV STA (21:31)
[2019-08-29] MEDS ORDERED: Hydromorphone 1 mg/ml Ampule ONE (21:36)
[2019-08-29] MEDS ORDERED: Sodium Chloride 0.9% 1000 ML 1,000 ML ONE (21:36)
[2019-08-29] MEDS ORDERED: BENADRYL 50 MG/ML ONE (21:36)
[2019-08-29] MEDS ORDERED: Inapsine 5 MG/2 ML ONE (21:36)
[2019-08-29 21:46] LABS: Absolute Neutrophil Ct (ANC) 9.79 (1.4-6.9); BASOPHIL % 0.3 % (0.0-0.4); Basophil (Absolute #) 0.05 (0-0.4); Eosinophil % 0.8 % (0.00-5.0); Eosinophil (Absolute #) 0.13 (0-0.5); Hematocrit 41.5 % (35-47); Hemoglobin 13.3 gm/dl (12.0-16.0); Lymphocytes % 30.8 % (24.0-44.0); Mean Cell Volume 81.1 fl (78-100); Monocyte (Absolute #) 1.26 (0.0-1.3); Monocytes % 7.8 % (0.0-12.0); Neutrophil % 60.3 % (36.0-66.0); Platelet Count 363 K/mm3 (150-450); Red Blood Count 5.12 M/mm3 (4.1-5.4); Red Cell Distribution Width 17.1 % (11.5-14.0); White Blood Count 16.2 K/mm3 (4.0-10.5)
[2019-08-29 21:54] LABS: Appearance SLIGHTLY CLOUDY (CLEAR); Bacteria RARE /HPF (NEGATIVE); Bilirubin NEGATIVE (NEGATIVE); Blood NEGATIVE Ery/ul (0-5); Epithelial Cells RARE /HPF (FEW); Glucose 50 mg/dL (NEGATIVE); Ketones NEGATIVE (NEGATIVE); Leukocyte Esterase TRACE (NEGATIVE); Mucus SLIGHT /HPF (NEGATIVE); Nitrite NEGATIVE (NEGATIVE); Protein,Urine Dip 30 (Negative); Specific Gravity 1.031 (1.005-1.025); Urobilinogen NEGATIVE mg/dL (0-1)
[2019-08-29 21:57] LABS: ALBUMIN 4.6 g/dL (3.5-5.0); ALKALINE PHOSPHATASE 75 U/L (38-126); ANION GAP 15.8 MEQ/L (5-15); BLOOD UREA NITROGEN 20 mg/dL (7-17); CHLORIDE 97 mmol/L (98-107); Calcium 9.8 mg/dL (8.4-10.2); Carbon Dioxide 28 mmol/L (22-30); Creatinine 1 0.72 mg/dL (0.52-1.04); Glucose 182 mg/dL (74-106); LIPASE 27 U/L (23-300); Potassium 3.7 mmol/L (3.5-5.1); SGOT/AST 39 U/L (14-36); SGPT/ALT 46 U/L (0-35); SODIUM 137 mmol/L (137-145); Total Protein 8.4 g/dL (6.3-8.2)
--- NOTE | 2019-08-29 22:02 | ERPHSYRPT ---
- History of Present Illness Time Seen by Provider: 08/29/19 21:08 Source: patient Exam Limitations: no limitations Patient Subjective Stated Complaint: Patient states " I have been having ABD pain that radiates into my back for about 1 week". Patient states today the pain became worse. Triage Nursing Assessment: Patient arrived to ER per self and ambulated Physician History: Patient is here for diarrhea x1 week. Patient states that she saw her PCP several weeks ago for, Dr. Ray. He thought was due to medication change. However, worsened over the past 24 to 40 hours. Several diarrhea stools. However these are not bloody. They are not dark. Patient has some abdominal pain with him. Location: abdominal Quality: sharp Radiation: none Severity: moderate Duration: 7 days Timing: gradual Modifying factors/associated signs and symptoms: none tried Allergies/Adverse Reactions: naproxen Allergy (Severe, Verified 08/29/19 21:48) Hives Itchy Hives Home Medications: Buspirone HCl 5 mg PO DAILY 03/17/19 [History] Escitalopram Oxalate [Lexapro] 20 mg PO DAILY 03/17/19 [History] Losartan Potassium [Cozaar] 100 mg PO DAILY 03/17/19 [History] Hydrochlorothiazide 25 mg PO DAILY 08/29/19 [History] Hx Tetanus, Diphtheria Vaccination/Date Given: Yes Hx Influenza Vaccination/Date Given: Yes Hx Pneumococcal Vaccination/Date Given: No Immunizations Up to Date: Yes Travel Risk - International Travel Have you traveled outside of the country in past 3 weeks: No - Coronavirus Screening Are you exhibiting any of the following symptoms?: No Close contact with a COVID-19 positive Pt in past 14-21 Days: No - Review of Systems Constitutional: No Fever, No Chills Eyes: No Symptoms Ears, Nose, & Throat: No Symptoms Respiratory: No Cough, No Dyspnea Cardiac: No Chest Pain, No Edema, No Syncope Abdominal/Gastrointestinal: Abdominal Pain, Nausea, Diarrhea, No Vomiting Genitourinary Symptoms: No Dysuria Musculoskeletal: No Back Pain, No Neck Pain Skin: No Rash Neurological: No Dizziness, No Focal Weakness, No Sensory Changes Psychological: No Symptoms Endocrine: No Symptoms All Other Systems: Reviewed and Negative - Past Medical History Pertinent Past Medical History: Yes Neurological History: No Pertinent History ENT History: No Pertinent History Cardiac History: Hypertension Respiratory History: No Pertinent History Endocrine Medical History: No Pertinent History Musculoskeletal History: No Pertinent History GI Medical History: No Pertinent History History: No Pertinent History Psycho-Social History: Anxiety, Depression Female Reproductive Disorders: No Pertinent History Other Medical History: reports she used to have depression. no diff at this time per pt report - Past Surgical History Past Surgical History: Yes Neuro Surgical History: No Pertinent History Cardiac: No Pertinent History Respiratory: No Pertinent History Gastrointestinal: No Pertinent History Genitourinary: No Pertinent History Musculoskeletal: No Pertinent History Female Surgical History: Section Other Surgical History: 3 c/sections - Social History Smoking Status: Never smoker Exposure to second hand smoke: Yes Drug Use: none Patient Lives Alone: No - Female History Hx Last Menstrual Period: Tubes Tied Hx Now: No - Nursing Vital Signs Nursing Vital Signs: Initial Vital Signs Temperature 98.9 F 08/29/19 21:36 Pulse Rate 109 H 08/29/19 21:36 Respiratory Rate 20 08/29/19 21:36 Blood Pressure 187/108 08/29/19 21:36 O2 Sat by Pulse Oximetry 95 08/29/19 21:36 Pain Scale Pain Intensity 8 - Physical Exam General Appearance: no apparent distress, alert Eye Exam: PERRL/EOMI, eyes nml inspection Ears, Nose, Throat Exam: normal ENT inspection, TMs normal, pharynx normal, moist mucous membranes Neck Exam: normal inspection, non-tender, supple, full range of motion Respiratory Exam: normal breath sounds, lungs clear, No respiratory distress Cardiovascular Exam: regular rate/rhythm, normal heart sounds, normal peripheral pulses Gastrointestinal/Abdomen Exam: soft, normal bowel sounds, tenderness, other ( Patient had diffuse abdominal tenderness without rebound or guarding), No mass Back Exam: normal inspection, normal range of motion, No CVA tenderness, No vertebral tenderness Extremity Exam: normal inspection, normal range of motion, pelvis stable Neurologic Exam: alert, oriented x 3, cooperative, normal mood/affect, nml cerebellar function, nml station & gait, sensation nml, No motor deficits Skin Exam: normal color, warm, dry, No rash Lymphatic Exam: No adenopathy SpO2: 95 Ordered Tests: Active Orders 24 hr Category Date Time Status EKG-ER Only STAT Care 08/29/19 21:31 Active IV Insertion STAT Care 08/29/19 21:31 Active NPO (ED) STAT Care 08/29/19 21:31 Active ABDOMEN AND PELVIS W/0 CONTRAS [CT] Stat Exams 08/29/19 21:32 Taken CBC W DIFF Stat Lab 08/29/19 21:45 Completed CMP Stat Lab 08/29/19 21:45 Completed CULTURE,URINE Stat Lab 08/29/19 21:45 Received LIPASE Stat Lab 08/29/19 21:45 Completed UA W/RFX UR CULTURE Stat Lab 08/29/19 21:45 Completed Medication Summary Discontinued Medications Generic Name Dose Route Start Last Admin Trade Name Dieterq PRN Reason Stop Dose Admin Diphenhydramine HCl 25 mg 08/29/19 21:31 08/29/19 21:42 Benadryl 50 Mg/Ml IV 08/29/19 21:32 25 mg STAT ONE Administration Diphenhydramine HCl Confirm 08/29/19 21:36 Benadryl 50 Mg/Ml Administered 08/29/19 21:37 Dose 50 mg .ROUTE .STK-MED ONE Droperidol 1.25 mg 08/29/19 21:31 08/29/19 21:42 Inapsine 5 Mg/2 Ml IV 08/29/19 21:32 1.25 mg STAT ONE Administration Droperidol Confirm 08/29/19 21:36 Inapsine 5 Mg/2 Ml Administered 08/29/19 21:37 Dose 5 mg .ROUTE .STK-MED ONE Hydromorphone HCl 1 mg 08/29/19 21:31 08/29/19 21:43 Hydromorphone 1 Mg/Ml Ampule IV 08/29/19 21:32 1 mg STAT ONE Administration Hydromorphone HCl Confirm 08/29/19 21:36 Hydromorphone 1 Mg/Ml Ampule Administered 08/29/19 21:37 Dose 1 mg .ROUTE .STK-MED ONE Sodium Chloride 1,000 mls @ 999 mls/hr 08/29/19 21:31 08/29/19 21:43 Sodium Chloride 0.9% 1000 Ml IV 08/29/19 22:31 999 mls/hr .Q1H1M STA Administration Sodium Chloride Confirm 08/29/19 21:36 Sodium Chloride 0.9% 1000 Ml Administered 08/29/19 21:37 Dose 1,000 mls @ ud .ROUTE .STK-MED ONE Lab/Rad Data: Laboratory Result Diagrams 08/29/19 21:45 08/29/19 21:45 Laboratory Results 08/29/19 08/29/19 08/29/19 Range/Units 21:45 21:45 21:45 WBC 16.2 H (4.0-10.5) K/mm3 RBC 5.12 (4.1-5.4) M/mm3 Hgb 13.3 (12.0-16.0) gm/dl Hct 41.5 (35-47) % MCV 81.1 (78-100) fl MCH 26.0 (26-32) pg MCHC 32.0 (32-36) g/dl RDW 17.1 H (11.5-14.0) % Plt Count 363 (150-450) K/mm3 MPV 11.0 (7.5-11.0) fl Gran % 60.3 (36.0-66.0) % Eos # (Auto) 0.13 (0-0.5) Absolute Lymphs (auto) 5.00 H (1.0-4.6) Absolute Monos (auto) 1.26 (0.0-1.3) Lymphocytes % 30.8 (24.0-44.0) % Monocytes % 7.8 (0.0-12.0) % Eosinophils % 0.8 (0.00-5.0) % Basophils % 0.3 (0.0-0.4) % Absolute Granulocytes 9.79 H (1.4-6.9) Basophils # 0.05 (0-0.4) Sodium 137 (137-145) mmol/L Potassium 3.7 (3.5-5.1) mmol/L Chloride 97 L (98-107) mmol/L Carbon Dioxide 28 (22-30) mmol/L Anion Gap 15.8 H (5-15) MEQ/L BUN 20 H (7-17) mg/dL Creatinine 0.72 (0.52-1.04) mg/dL Estimated GFR > 60.0 ML/MIN Glucose 182 H (74-106) mg/dL Calcium 9.8 (8.4-10.2) mg/dL Total Bilirubin 0.40 (0.2-1.3) mg/dL AST 39 H (14-36) U/L ALT 46 H (0-35) U/L Alkaline Phosphatase 75 (38-126) U/L Serum Total Protein 8.4 H (6.3-8.2) g/dL Albumin 4.6 (3.5-5.0) g/dL Lipase 27 (23-300) U/L Urine Color YELLOW (YELLOW) Urine Appearance SLIGHTLY CLOUDY (CLEAR) Urine pH 5.0 (5-6) Ur Specific [place] 1.031 (1.005-1.025) Urine Protein 30 (Negative) Urine Ketones NEGATIVE (NEGATIVE) Urine Blood NEGATIVE (0-5) [place]/ul Urine Nitrite NEGATIVE (NEGATIVE) Urine Bilirubin NEGATIVE (NEGATIVE) Urine Urobilinogen NEGATIVE (0-1) mg/dL Ur Leukocyte Esterase TRACE (NEGATIVE) Urine WBC (Auto) 11-15 (0-5) /HPF Urine RBC (Auto) 3-5 (0-2) /HPF U Hyaline Cast (Auto) 3-5 (0-2) /LPF U Epithel Cells (Auto) RARE (FEW) /HPF Urine Bacteria (Auto) RARE (NEGATIVE) /HPF Urine Mucus (Auto) SLIGHT (NEGATIVE) /HPF Urine Culture Reflexed YES (NO) Urine Glucose 50 (NEGATIVE) mg/dL - Progress Progress: improved Progress Note: 08/29/19 22:01 differential diagnosis includes kidney stone, compression fracture, infection, UTI, triple AAA - basic labs including: CBC, lipase, CMP, UA - insert IV for fluids, pain meds, nausea control - consider imaging: CT ab/pelvis 08/29/19 23:06 Patient feeling improved overall. No longer having any nausea or vomiting in the room. Abdominal pain improved. CT scan showed no obvious abdominal pathology. Patient does have some leukocytosis. Most likely secondary to vomiting. Otherwise she feels well. Patient's glucose is 182. She states that she is not a diabetic. She will need to follow-up with her PCP for hemoglobin A1c. I did discuss this with the patient. She will return here for any new or changing symptoms Counseled pt/family regarding: lab results, diagnosis, need for follow-up, rad results - Departure Departure Disposition: Home Clinical Impression: Nausea and vomiting Condition: Stable Critical Care Time: No Referrals: JOHN RAY MD [Primary Care Provider] - Instructions: Acute Abdomen (Belly Pain), Adult (DC)
[2019-08-29 23:33] VITALS: BP 144/73; PULSE 84; O2SAT 96
--- NOTE | 2019-08-30 06:28 | XRAY ---
Indication: Right abdomen/back pain. Nausea, vomiting, diarrhea. Elevated WBC. Multiple contiguous axial images obtained through the abdomen and pelvis without contrast as ordered. Comparison: None Lung bases are clear. Heart is not enlarged. Noncontrasted stomach and bowel loops appear nonobstructed. Normal appendix. Minimal distal descending colonic diverticulosis without diverticulitis. No free fluid/air. Fatty hepatomegaly measuring 23 cm. Benign appearing bilateral adrenal gland calcifications. Remaining gallbladder, pancreas, spleen, kidneys, ureters, bladder, uterus, and aorta appear unremarkable for noncontrast exam. Osseous structures intact. Impression: 1. Fatty hepatomegaly and benign appearing bilateral adrenal calcifications. 2. Remaining CT abdomen/pelvis without contrast exam is negative. Comment: Preliminary interpretation was made by [facility]. No critical discrepancy.
== END 2019-08-29 23:15 | disposition home or self-care (01) ==
LOC: ED 21:02
DX: R11.2 Nausea with vomiting, unspecified (principal); R10.9 Unspecified abdominal pain; F41.9 Anxiety disorder, unspecified; F32.9 Major depressive disorder, single episode, unspecified
CPT/HCPCS: 36000; 36415; 74176; 80053; 81001; 83690; 85025; 87086; 93005; 96360; 96374; 96375; 99284; J1170; J1200

== ENCOUNTER 2019-09-20 20:56 | Emergency (ER) | payer OTHER ==
--- NOTE | 2019-09-20 21:12 | ERPHSYRPT ---
- History of Present Illness Time Seen by Provider: 09/20/19 21:07 Source: patient, family Exam Limitations: no limitations Physician History: pt has right ear ache for a few days - no trauma , has been swimming - no drainage , no fever , slight N no V ; no cough or ST. Timing/Duration: gradual onset, days Severity: moderate ENT Location: ear (R) Prearrival Treatment: over the counter meds Modifying Factors: Improves With: nothing Associated Symptoms: ear pain (R), No cough, No fever, No ear drainage, No facial pain/swelling, No neck pain, No sore throat, No tooth pain, No difficulty swallowing, No voice change Allergies/Adverse Reactions: naproxen Allergy (Severe, Verified 08/29/19 21:48) Hives Itchy Hives Home Medications: Buspirone HCl 5 mg PO DAILY 03/17/19 [History] Escitalopram Oxalate [Lexapro] 20 mg PO DAILY 03/17/19 [History] Losartan Potassium [Cozaar] 100 mg PO DAILY 03/17/19 [History] Hydrochlorothiazide 25 mg PO DAILY 08/29/19 [History] Hx Tetanus, Diphtheria Vaccination/Date Given: Yes Hx Influenza Vaccination/Date Given: Yes Hx Pneumococcal Vaccination/Date Given: No - Review of Systems Constitutional: No Fever, No Chills Eyes: No Symptoms Ears, Nose, & Throat: Ear Pain Respiratory: No Cough, No Dyspnea Cardiac: No Chest Pain, No Edema, No Syncope Abdominal/Gastrointestinal: No Abdominal Pain, No Nausea, No Vomiting, No Diarrhea Genitourinary Symptoms: No Dysuria Musculoskeletal: No Back Pain, No Neck Pain Skin: No Rash Neurological: No Dizziness, No Focal Weakness, No Sensory Changes Psychological: No Symptoms Endocrine: No Symptoms All Other Systems: Reviewed and Negative - Past Medical History Pertinent Past Medical History: Yes Neurological History: No Pertinent History ENT History: No Pertinent History Cardiac History: Hypertension Respiratory History: No Pertinent History Endocrine Medical History: No Pertinent History Musculoskeletal History: No Pertinent History GI Medical History: No Pertinent History History: No Pertinent History Psycho-Social History: Anxiety, Depression Female Reproductive Disorders: No Pertinent History Other Medical History: reports she used to have depression. no diff at this time per pt report - Past Surgical History Past Surgical History: Yes Neuro Surgical History: No Pertinent History Cardiac: No Pertinent History Respiratory: No Pertinent History Gastrointestinal: No Pertinent History Genitourinary: No Pertinent History Musculoskeletal: No Pertinent History Female Surgical History: Section Other Surgical History: 3 c/sections - Social History Smoking Status: Never smoker Exposure to second hand smoke: Yes Drug Use: none Patient Lives Alone: No - Physical Exam General Appearance: no apparent distress, alert Eye Exam: bilateral eye: PERRL, EOMI Ear Exam: right ear: swelling, tenderness, TM dull, left ear: canal normal, TM normal, bilateral ear: auricle normal Nasal Exam: normal inspection Throat Exam: pharynx normal, moist mucus membranes, No tonsillar exudate Neck Exam: normal inspection, non-tender, supple, full range of motion, trachea midline Cardiovascular/Respiratory Exam: normal breath sounds, regular rate/rhythm Abdominal Exam: non-tender, soft Neurologic Exam: alert, oriented x 3, cooperative, 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 followup with your dr to recheck ear for fluid as this can impact hearing if it persists. Prescriptions: Amox Tr/Potass Clav. 875 mg [Augmentin 875-125 Tablet] 875 mg PO BID #20 tablet
[2019-09-20] MEDS ORDERED: CORTISPORIN EAR DROPS Solution 1OML OT ONE (21:14)
[2019-09-20] MEDS ORDERED: Augmentin 875-125 Tablet PO ONE (21:14)
[2019-09-20] MEDS ORDERED: Augmentin 875-125 Tablet ONE (21:18)
[2019-09-20 21:35] VITALS: BP 141/80; PULSE 100; O2SAT 95
[2019-09-20] MEDS ORDERED: CORTISPORIN EAR DROPS 10 ML SUSPENSION OT SCH (22:00)
== END 2019-09-20 21:35 | disposition home or self-care (01) ==
LOC: ED 20:56
DX: H60.91 Unspecified otitis externa, right ear (principal); H66.91 Otitis media, unspecified, right ear
CPT/HCPCS: 99283; A9270-GY

== ENCOUNTER 2019-10-30 19:02 | Emergency (ER) | payer BC, OTHER ==
[2019-10-30] MEDS ORDERED: MORPHINE SULFATE 2 MG INJ IV ONE (19:33)
[2019-10-30] MEDS ORDERED: Sodium Chloride 0.9% 1000 ML 1,000 ML IV STA (19:33)
--- NOTE | 2019-10-30 19:37 | ERPHSYRPT ---
- History of Present Illness Time Seen by Provider: 10/30/19 19:30 Exam Limitations: no limitations Patient Subjective Stated Complaint: pt states that her belly pain began 4 days ago, pt states that she had teeth pulled on sunday, pt states that she was on pain medication and the pain was decreased with the use of the pain medication, pt states that she think its a ulcer, pt states that she is under a lot of stress, pt states that she is getting in a couple weeks Triage Nursing Assessment: pt ambulated into the er, pt is axo x3, c/o abd pain, states pain 6/10, abd soft, tenderness with palpation to RUQ, active bowel sounds in all quads, hypertension Physician History: Patient is a 34-year-old female who presents to our ED with complaints of periumbilical pain and epigastric that has been ongoing for 4 days. Patient believes the pain is worse than what she is sensing because she is currently on pain medication due to dental extraction. She has been out of pain medication for the past 4 days as well. Patient attributes her pain to gastric ulcer. Patient states she has been under significant stress due to planning a wedding. Pain described as an ache that is localized. No radiation. Pain rated 6 out of 10. Pain worse after meals. Pain improved somewhat with rest. No trauma. No nausea or vomiting. No diarrhea. Patient states she is otherwise healthy. She voices no other complaints at this time. Timing/Duration: day(s) (4 days) Activities at Onset: none Quality: aching Abdominal Pain Onset Location: epigastric, periumbilical Pain Radiation: no radiation Severity of Pain-Max: moderate Severity of Pain-Current: mild Modifying Factors: Improves With: eating Associated Symptoms: No chest pain, No diaphoresis, No diarrhea, No fever/chills, No headache, No heartburn, No loss of appetite, No nausea, No shortness of breath, No syncope, No vomiting Previous symptoms: no prior history Allergies/Adverse Reactions: naproxen Allergy (Severe, Verified 10/30/19 19:11) Hives Itchy Hives Home Medications: Buspirone HCl 5 mg PO BID 03/17/19 [History] Escitalopram Oxalate [Lexapro] 20 mg PO DAILY 03/17/19 [History] Losartan Potassium [Cozaar] 100 mg PO DAILY 03/17/19 [History] Hydrochlorothiazide 25 mg PO DAILY 08/29/19 [History] Hx Tetanus, Diphtheria Vaccination/Date Given: Yes Hx Influenza Vaccination/Date Given: No Hx Pneumococcal Vaccination/Date Given: No Travel Risk - International Travel Have you traveled outside of the country in past 3 weeks: No - Coronavirus Screening Are you exhibiting any of the following symptoms?: No Close contact with a COVID-19 positive Pt in past 14-21 Days: No - Review of Systems Constitutional: No Symptoms, No Fever, No Chills Eyes: No Symptoms Ears, Nose, & Throat: No Symptoms Respiratory: No Symptoms, No Cough, No Dyspnea Cardiac: No Symptoms, No Chest Pain, No Edema, No Syncope Abdominal/Gastrointestinal: No Symptoms, No Abdominal Pain, No Nausea, No Vomiting, No Diarrhea Genitourinary Symptoms: No Symptoms, No Dysuria Musculoskeletal: No Symptoms, No Back Pain, No Neck Pain Skin: No Symptoms, No Rash Neurological: No Symptoms, No Dizziness, No Focal Weakness, No Sensory Changes Psychological: No Symptoms Endocrine: No Symptoms Hematologic/Lymphatic: No Symptoms Immunological/Allergic: No Symptoms All Other Systems: Reviewed and Negative - Past Medical History Pertinent Past Medical History: Yes Neurological History: No Pertinent History ENT History: No Pertinent History Cardiac History: Hypertension Respiratory History: No Pertinent History Endocrine Medical History: No Pertinent History Musculoskeletal History: No Pertinent History GI Medical History: No Pertinent History History: No Pertinent History Psycho-Social History: Anxiety, Depression Female Reproductive Disorders: No Pertinent History Other Medical History: reports she used to have depression. no diff at this time per pt report - Past Surgical History Past Surgical History: Yes Neuro Surgical History: No Pertinent History Cardiac: No Pertinent History Respiratory: No Pertinent History Gastrointestinal: No Pertinent History Genitourinary: No Pertinent History Musculoskeletal: No Pertinent History Female Surgical History: Section Other Surgical History: 3 c/sections, 3 wisdom teeth pulled - Social History Smoking Status: Never smoker Exposure to second hand smoke: No Drug Use: none Patient Lives Alone: No - Female History Hx Now: No - Nursing Vital Signs Nursing Vital Signs: Initial Vital Signs Temperature 99.4 F 10/30/19 19:20 Pulse Rate 99 H 10/30/19 19:20 Respiratory Rate 16 10/30/19 19:20 Blood Pressure 155/117 10/30/19 19:20 O2 Sat by Pulse Oximetry 95 10/30/19 19:20 Pain Scale Pain Intensity 3 - Physical Exam General Appearance: no apparent distress, alert Eye Exam: PERRL/EOMI, eyes nml inspection Ears, Nose, Throat Exam: normal ENT inspection, pharynx normal, moist mucous membranes Neck Exam: normal inspection, non-tender, supple, full range of motion Respiratory Exam: normal breath sounds, lungs clear, No respiratory distress Cardiovascular Exam: regular rate/rhythm, normal heart sounds Gastrointestinal/Abdomen Exam: soft, tenderness (Epigastric and right upper quadrant tenderness.), No mass Back Exam: normal inspection, normal range of motion, No CVA tenderness, No vertebral tenderness Extremity Exam: normal inspection, normal range of motion, pelvis stable Neurologic Exam: alert, oriented x 3, cooperative, normal mood/affect, nml cerebellar function, sensation nml, No motor deficits Skin Exam: normal color, warm, dry SpO2 Interpretation: normal SpO2: 95 O2 Delivery: Room Air - Course Nursing assessment & vital signs reviewed: Yes EKG Interpreted by Me: RATE (99), Sinus Rhythm, Left [place] Deviation, NORMAL INTERVALS - CT Exams Abdomen/Pelvis CT Interpretation: Tele-radiologist Report (No calcifications, cardiomegaly, hepatomegaly) Ordered Tests: Active Orders 24 hr Category Date Time Status EKG-ER Only STAT Care 10/30/19 20:50 Active IV Insertion STAT Care 10/30/19 19:33 Active ABDOMEN AND PELVIS W CONTRAST [CT] Stat Exams 10/30/19 19:35 Taken CBC W DIFF Stat Lab 10/30/19 19:48 Completed CMP Stat Lab 10/30/19 19:48 Completed HCG,QUALITATIVE URINE Stat Lab 10/30/19 19:48 Completed LIPASE Stat Lab 10/30/19 19:48 Completed TROPONIN Q3H Lab 10/30/19 19:48 Completed TROPONIN Q3H Lab 10/30/19 22:45 Ordered TROPONIN Q3H Lab 10/31/19 01:45 Ordered TROPONIN Q3H Lab 10/31/19 04:45 Ordered TROPONIN Q3H Lab 10/31/19 07:45 Ordered Medication Summary Discontinued Medications Generic Name Dose Route Start Last Admin Trade Name Freq PRN Reason Stop Dose Admin Sodium Chloride 1,000 mls @ 999 mls/hr 10/30/19 19:33 10/30/19 20:46 Sodium Chloride 0.9% 1000 Ml IV 10/30/19 20:33 Infused .Q1H1M STA Infusion Sodium Chloride Confirm 10/30/19 19:39 Sodium Chloride 0.9% 1000 Ml Administered 10/30/19 19:40 Dose 1,000 mls @ ud .ROUTE .STK-MED ONE Morphine Sulfate 2 mg 10/30/19 19:33 10/30/19 19:40 Morphine Sulfate 2 Mg Inj IV 10/30/19 19:34 2 mg STAT ONE Administration Morphine Sulfate Confirm 10/30/19 19:39 Morphine Sulfate 2 Mg Inj Administered 10/30/19 19:40 Dose 2 mg .ROUTE .STK-MED ONE Lab/Rad Data: Laboratory Result Diagrams 10/30/19 19:48 10/30/19 19:48 Laboratory Results 10/30/19 10/30/19 10/30/19 Range/Units 19:48 19:48 19:48 WBC (4.0-10.5) K/mm3 RBC (4.1-5.4) M/mm3 Hgb (12.0-16.0) gm/dl Hct (35-47) % MCV (78-100) fl MCH (26-32) pg MCHC (32-36) g/dl RDW (11.5-14.0) % Plt Count (150-450) K/mm3 MPV (7.5-11.0) fl Gran % (36.0-66.0) % Eos # (Auto) (0-0.5) Absolute Lymphs (auto) (1.0-4.6) Absolute Monos (auto) (0.0-1.3) Lymphocytes % (24.0-44.0) % Monocytes % (0.0-12.0) % Eosinophils % (0.00-5.0) % Basophils % (0.0-0.4) % Absolute Granulocytes (1.4-6.9) Basophils # (0-0.4) Sodium 137 (137-145) mmol/L Potassium 3.8 (3.5-5.1) mmol/L Chloride 98 (98-107) mmol/L Carbon Dioxide 28 (22-30) mmol/L Anion Gap 14.7 (5-15) MEQ/L BUN 18 H (7-17) mg/dL Creatinine 0.67 (0.52-1.04) mg/dL Estimated GFR > 60.0 ML/MIN Glucose 216 H (74-106) mg/dL Calcium 9.7 (8.4-10.2) mg/dL Total Bilirubin 0.40 (0.2-1.3) mg/dL AST 106 H (14-36) U/L ALT 95 H (0-35) U/L Alkaline Phosphatase 91 (38-126) U/L Troponin I < 0.012 (0.000-0.034) ng/mL Serum Total Protein 7.9 (6.3-8.2) g/dL Albumin 4.4 (3.5-5.0) g/dL Lipase 44 (23-300) U/L Urine HCG, Qual NEGATIVE (Negative) 10/30/19 Range/Units 19:48 WBC 13.0 H (4.0-10.5) K/mm3 RBC 5.02 (4.1-5.4) M/mm3 Hgb 13.2 (12.0-16.0) gm/dl Hct 41.9 (35-47) % MCV 83.5 (78-100) fl MCH 26.3 (26-32) pg MCHC 31.5 L (32-36) g/dl RDW 15.7 H (11.5-14.0) % Plt Count 356 (150-450) K/mm3 MPV 12.4 H (7.5-11.0) fl Gran % 58.2 (36.0-66.0) % Eos # (Auto) 0.15 (0-0.5) Absolute Lymphs (auto) 4.14 (1.0-4.6) Absolute Monos (auto) 1.12 (0.0-1.3) Lymphocytes % 31.8 (24.0-44.0) % Monocytes % 8.6 (0.0-12.0) % Eosinophils % 1.2 (0.00-5.0) % Basophils % 0.2 (0.0-0.4) % Absolute Granulocytes 7.57 H (1.4-6.9) Basophils # 0.03 (0-0.4) Sodium (137-145) mmol/L Potassium (3.5-5.1) mmol/L Chloride (98-107) mmol/L Carbon Dioxide (22-30) mmol/L Anion Gap (5-15) MEQ/L BUN (7-17) mg/dL Creatinine (0.52-1.04) mg/dL Estimated GFR ML/MIN Glucose (74-106) mg/dL Calcium (8.4-10.2) mg/dL Total Bilirubin (0.2-1.3) mg/dL AST (14-36) U/L ALT (0-35) U/L Alkaline Phosphatase (38-126) U/L Troponin I (0.000-0.034) ng/mL Serum Total Protein (6.3-8.2) g/dL Albumin (3.5-5.0) g/dL Lipase (23-300) U/L Urine HCG, Qual (Negative) - Progress Progress: improved Progress Note: 10/30/19 21:28 Patient reassessed. Pain improved. Patient has right upper quadrant tenderness. However we are not allowed to order ultrasound of the gallbladder through our ED after hours. A prescription and appointment was provided to arrange for outpatient ultrasound to be performed tomorrow morning at 10 AM. Results to be sent to Dr. Ray patient's primary care doctor. Patient agrees to follow-up with her primary care doctor within 48 hours for reevaluation. Patient voices no other complaints concerns at this time. Counseled pt/family regarding: lab results, diagnosis, need for follow-up, rad results - Departure Departure Disposition: Home Clinical Impression: Epigastric pain, Leukocytosis, Hyperglycemia, Adrenal calcification, Cardio megaly, Hepatomegaly Condition: Stable Critical Care Time: No Referrals: JOHN RAY MD [Primary Care Provider] - Additional Instructions: Discharge/Care Plan BETTINA AGUILAR was seen on 10/30/19 in the Emergency Room. The patient was counseled regarding Diagnosis,Lab results, Imaging studies, need for follow up and when to return to the Emergency Room. Prescriptions given: Discharge Note I have spoken with the patient and/or caregivers. I have explained the patient's condition, diagnosis and treatment plan based on the information available to me at this time. I have answered the patient's and/or caregiver's questions and addressed any concerns. The patient and/or caregivers have as good understanding of the patient's diagnosis, condition and treatment plan as can be expected at this point. The vital signs have been stable. The patient's condition is stable and appropriate for discharge from the emergency department. The patient will pursue further outpatient evaluation with the primary care physician or other designated or consulting physician as outlined in the discharge instructions. The patient and/or caregivers are agreeable to this plan of care and follow-up instructions have been explained in detail. The patient and/or caregivers have received these instruction. The patient/and or caregivers are aware that any significant change in condition or worsening of symptoms should prompt an immediate return to this or the closest emergency department or call 911. Prescriptions: PANTOPRAZOLE 40 mg Tablet [Protonix 40MG Tablet] 40 mg PO QAM 14 Days #14 tab
[2019-10-30] MEDS ORDERED: Sodium Chloride 0.9% 1000 ML 1,000 ML ONE (19:39)
[2019-10-30] MEDS ORDERED: MORPHINE SULFATE 2 MG INJ ONE (19:39)
[2019-10-30 19:53] LABS: Absolute Neutrophil Ct (ANC) 7.57 (1.4-6.9); BASOPHIL % 0.2 % (0.0-0.4); Basophil (Absolute #) 0.03 (0-0.4); Eosinophil % 1.2 % (0.00-5.0); Eosinophil (Absolute #) 0.15 (0-0.5); Hematocrit 41.9 % (35-47); Hemoglobin 13.2 gm/dl (12.0-16.0); Lymphocyte (Absolute #) 4.14 (1.0-4.6); Lymphocytes % 31.8 % (24.0-44.0); Mean Cell Volume 83.5 fl (78-100); Mean Corpuscular Hemoglobin 26.3 pg (26-32); Mean Corpuscular Hgb Concent. 31.5 g/dl (32-36); Mean Platelet Volume 12.4 fl (7.5-11.0); Monocyte (Absolute #) 1.12 (0.0-1.3); Monocytes % 8.6 % (0.0-12.0); Neutrophil % 58.2 % (36.0-66.0); Platelet Count 356 K/mm3 (150-450); Red Blood Count 5.02 M/mm3 (4.1-5.4); Red Cell Distribution Width 15.7 % (11.5-14.0)
[2019-10-30 20:04] LABS: ALBUMIN 4.4 g/dL (3.5-5.0); ALKALINE PHOSPHATASE 91 U/L (38-126); ANION GAP 14.7 MEQ/L (5-15); BLOOD UREA NITROGEN 18 mg/dL (7-17); CHLORIDE 98 mmol/L (98-107); Calcium 9.7 mg/dL (8.4-10.2); Carbon Dioxide 28 mmol/L (22-30); Creatinine 1 0.67 mg/dL (0.52-1.04); Glucose 216 mg/dL (74-106); LIPASE 44 U/L (23-300); Potassium 3.8 mmol/L (3.5-5.1); SGOT/AST 106 U/L (14-36); SGPT/ALT 95 U/L (0-35); SODIUM 137 mmol/L (137-145); Total Protein 7.9 g/dL (6.3-8.2)
[2019-10-30 21:44] VITALS: BP 177/89; PULSE 112; O2SAT 96
--- NOTE | 2019-10-31 08:38 | XRAY ---
Indication: Right upper quadrant pain, nausea, and diarrhea 4 days. Elevated WBC. Multiple contiguous axial images obtained through the abdomen and pelvis using 80 cc Isovue 370 contrast only. Comparison: August 29, 2019. Lung bases remain clear. Heart is now enlarged. Stomach is mildly distended with fluid/fluid. Noncontrasted stomach and bowel loops remain nonobstructed. Normal appendix. No free fluid/air. Enlarging fatty hepatomegaly today measuring 26 cm, previously 23 cm. Gallbladder partially contracted without gallstones. Stable benign appearing bilateral adrenal calcifications. Remaining pancreas, spleen, kidneys, ureters, bladder, uterus, and aorta appear unremarkable. No pathologic retroperitoneal lymphadenopathy. Osseous structures remain intact. Impression: 1. New cardiomegaly without CHF. 2. Again fatty hepatomegaly and benign appearing bilateral adrenal calcifications. 2. Remaining CT abdomen/pelvis with contrast exam is negative.
== END 2019-10-30 21:51 | disposition home or self-care (01) ==
LOC: ED 19:02
DX: R10.13 Epigastric pain (principal); D72.829 Elevated white blood cell count, unspecified; R73.9 Hyperglycemia, unspecified; E27.49 Other adrenocortical insufficiency; I51.7 Cardiomegaly; R16.0 Hepatomegaly, not elsewhere classified; Z79.899 Other long term (current) drug therapy; I10 Essential (primary) hypertension
CPT/HCPCS: 36000; 36415; 74177; 80053; 83690; 84484; 84703; 85025; 93005; 96374; 99284; J2270

== ENCOUNTER 2019-12-15 08:38 | Day surgery (SDC) | payer OTHER ==
--- NOTE | 2019-12-15 08:09 | HP ---
AMENDED REPORT: DATE OF SURGERY: 12/15/2019 HISTORY OF PRESENT ILLNESS: The patient has had right upper quadrant pain for a couple weeks' worse at times, nausea. No vomiting. Worse if she eats spicy foods. No prior upper abdominal surgery. No jaundice or other problems in the past. No bloody stools. PAST MEDICAL HISTORY: Hypertension. Anxiety. PAST SURGICAL HISTORY: . [place] teeth pulled. MEDICATIONS: Lexapro, hydrochlorothiazide, potassium. ALLERGIES: NAPROXEN. FAMILY HISTORY: Diabetes, hypertension, cancer and liver disease. SOCIAL HISTORY: Denies smoking. No alcohol abuse. REVIEW OF SYSTEMS: Fourteen systems reviewed. No chest pain or palpitations. Other systems negative or noncontributory as above and per preadmission questionnaire. LAB DATA AND TESTS: Normal HIDA scan. Ejection fraction is 86%. She had an ultrasound that supposedly did not show any gallstones. PHYSICAL EXAMINATION: GENERAL: No acute distress. HEENT: Sclerae nonicteric. NECK: No JVD. CHEST: Equal excursion, nonlabored breathing. CVS: Regular rate and rhythm. ABDOMEN: Soft. No peritoneal signs. Mild right upper quadrant tenderness. EXTREMITIES: No significant edema. NEURO: Alert, oriented, moving extremities symmetrically. No gross motor deficits noted. PSYCH: Appropriate mood and affect. IMPRESSION: Right upper quadrant pain. She had ultrasound with no gallstones. HIDA ejection fraction considered in normal range. I feel the patient would benefit from upper endoscopy to rule out peptic ulcer disease, gastritis or other etiology given ultrasound and HIDA results. If that is negative the patient may need consideration of endoscopic ultrasound for better evaluation of the gallbladder itself. Otherwise general risk of bleeding or infection, risk of bowel injury or perforation, risk of missed or nondiagnosis or incomplete exam possibly requiring barium swallow, other studies or procedures. General risk of anesthesia or sedation but not limited to will proceed with EGD possible biopsy as an outpatient.
[~2019-12-15 08:38] MED LIST: DIPRIVAN 200 MG/20 ML IV ONE; Ketamine HCl 50 MG/ML ONE
[2019-12-15] MEDS ORDERED: Lactated Ringers 1,000 ML IV SCH (09:00)
[2019-12-15 11:57] VITALS: O2SAT 97
[2019-12-15 12:27] VITALS: BP 153/72; PULSE 90
--- NOTE | 2019-12-15 15:21 | OP ---
SURGERY DATE/TIME: 12/15/2019 1044 PREOPERATIVE DIAGNOSIS: Right upper quadrant, gallbladder ultrasound and HIDA scan within normal limits. POSTOPERATIVE DIAGNOSES: 1) Mild duodenitis. 2) Minimal to mild gastritis. 3) Short segment distal gastroesophagitis. PROCEDURES: 1) EGD with cold biopsy of the antrum to evaluate for Helicobacter pylori. 2) Cold biopsy distal esophagus to evaluate for esophagitis. SURGEON: Dr. Forrest Davis. ANESTHESIA: MAC. ESTIMATED BLOOD LOSS: Minimal. INDICATIONS: As noted above. Risks and benefits explained in detail and not limited to and consent obtained. DESCRIPTION OF PROCEDURE AND FINDINGS: The patient is taken to the endoscopy room. MAC anesthesia introduced. After official time out and no disagreement with planned procedure, a bite block positioned. Video gastroscope easily passed down the esophagus through the patent pylorus to the junction of the second and third portion of the duodenum. There was some mild duodenitis in the proximal duodenum. Otherwise second and third portion of the duodenum no signs of any obvious ulcers or masses. The ampulla was just a little bit prominent. Back in the stomach there was some mild gastritis. Cold biopsy taken to evaluate for Helicobacter pylori. Good hemostasis noted. On retroflex there was no sign of any significant hiatal hernia. Gastroesophageal junction snug against the scope. The scope straightened and pulled back. Gastroesophageal junction about 36 cm. There was a short segment of some grade A distal esophagitis. It had some partial healing. Good hemostasis noted. No gross evidence of Jordan's esophagus. Otherwise it should be noted the patient was quite alert and was actually pulling the scope out at this point. There had been no signs of any obvious other mucosal lesions on withdrawal of the scope. The patient tolerated the procedure well but did have very light coughing and pulling on the scope out. Again, no signs of any obvious masses or mucosal lesions in the esophagus. There was no family available to discuss the findings with out in the waiting area.
== END 2019-12-15 12:10 | disposition home or self-care (01) ==
LOC: SDC 08:38
PROVIDERS: ATTEND Surgery
DX: K29.80 Duodenitis without bleeding (principal); I10 Essential (primary) hypertension; F41.9 Anxiety disorder, unspecified; Z79.899 Other long term (current) drug therapy; K29.70 Gastritis, unspecified, without bleeding; K20.9 Esophagitis, unspecified
CPT/HCPCS: 84703; 87081; J2704

== ENCOUNTER 2020-02-05 06:11 | Emergency (ER) | payer OTHER ==
--- NOTE | 2020-02-05 07:28 | ERPHSYRPT ---
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 pt ambulatory with steady gait noted. skin pink warm and dry. respriations nonlabored with lungs cta. Physician History: Patient has been sick for the past 2 days with cough, fever, sore throat, shortness of breath, fatigue and headache after being exposed to a COVID-19 positive exposure one week ago. Patient has not been evaluated before coming into the emergency department. Timing/Duration: day(s) (2) Cough Quality/Degree: moderate Possible Cause: no prior episodes Modifying Factors: Improves With: nothing Associated Symptoms: fever, chills, cough, No chest pain/soreness, No dizziness, No earache, No facial pain, No headache, No lightheadedness, No muscle aches, No nasal congestion, No nasal drainage, No shortness of breath, No sinus infection, No sore throat, No wheezing Allergies/Adverse Reactions: naproxen Allergy (Severe, Verified 02/05/20 06:54) Hives Itchy Hives Home Medications: Buspirone HCl 5 mg PO BID 03/17/19 [History] Escitalopram Oxalate [Lexapro] 20 mg PO DAILY 03/17/19 [History] Losartan Potassium [Cozaar] 100 mg PO DAILY 03/17/19 [History] Hydrochlorothiazide 25 mg PO DAILY 08/29/19 [History] Hx Tetanus, Diphtheria Vaccination/Date Given: No Hx Influenza Vaccination/Date Given: No Hx Pneumococcal Vaccination/Date Given: No Immunizations Up to Date: No Travel Risk - International Travel Have you traveled outside of the country in past 3 weeks: No - Coronavirus Screening Are you exhibiting any of the following symptoms?: Yes Symptoms: Fever, Cough: New Onset, Shortness of Breath, Vomiting/Diarrhea, Loss of Taste or Smell, Headaches/Body Aches/Fatigue Close contact with a COVID-19 positive Pt in past 14-21 Days: Yes - Review of Systems Constitutional: Fever, Chills, Fatigue Eyes: No Discharge, No Eye Pain, No Eye Redness Ears, Nose, & Throat: Throat Pain, No Ear Pain, No Throat Swelling Respiratory: Cough, No Dyspnea Cardiac: No Chest Pain, No Edema, No Syncope Abdominal/Gastrointestinal: Nausea, Vomiting, Diarrhea, No Abdominal Pain, No Hematochezia Genitourinary Symptoms: No Dysuria, No Hematuria, No Flank Pain Musculoskeletal: No Back Pain, No Neck Pain Skin: No Rash Neurological: Headache, No Dizziness, No Focal Weakness, No Sensory Changes Psychological: No Symptoms Endocrine: No Symptoms All Other Systems: Reviewed and Negative - Past Medical History Pertinent Past Medical History: Yes Neurological History: No Pertinent History ENT History: No Pertinent History Cardiac History: Hypertension, Other Respiratory History: No Pertinent History Endocrine Medical History: No Pertinent History Musculoskeletal History: No Pertinent History GI Medical History: GERD History: No Pertinent History Psycho-Social History: Anxiety, Depression Female Reproductive Disorders: No Pertinent History Other Medical History: reports she used to have depression. slightly enlarged heart, murmur as a child. - Past Surgical History Past Surgical History: Yes Neuro Surgical History: No Pertinent History Cardiac: No Pertinent History Respiratory: No Pertinent History Gastrointestinal: No Pertinent History Genitourinary: No Pertinent History Musculoskeletal: No Pertinent History Female Surgical History: Section Other Surgical History: 3 c/sections, 3 wisdom teeth pulled - Social History Smoking Status: Never smoker Exposure to second hand smoke: No Drug Use: none Patient Lives Alone: No - Female History Hx Last Menstrual Period: 2 weeks Hx Now: No - Nursing Vital Signs Nursing Vital Signs: Initial Vital Signs Temperature 99.0 F 02/05/20 06:27 Pulse Rate 104 H 02/05/20 06:27 Respiratory Rate 20 02/05/20 06:27 Blood Pressure 130/103 02/05/20 06:27 O2 Sat by Pulse Oximetry 95 02/05/20 06:27 Pain Scale Pain Intensity 0 - Physical Exam General Appearance: no apparent distress, alert Eye Exam: PERRL/EOMI, eyes nml inspection Ears, Nose, Throat Exam: normal ENT inspection, TMs normal, pharynx normal, moist mucous membranes, pharyngeal erythema, No tonsillar exudate Neck Exam: normal inspection, non-tender, supple, full range of motion, No lymphadenopathy Respiratory Exam: normal breath sounds, lungs clear, No respiratory distress, No diminished breath sounds, No accessory muscle use, No crackles/rales, No rhonchi, No wheezing, No stridor Cardiovascular Exam: regular rate/rhythm, normal heart sounds, normal peripheral pulses, capillary refill <2 sec Gastrointestinal/Abdomen Exam: soft, No tenderness Back Exam: normal inspection, No CVA tenderness, No vertebral tenderness Extremity Exam: normal inspection, normal range of motion, No swelling Neurologic Exam: alert, oriented x 3, cooperative, 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, normal mood/affect, sensation nml, No motor deficits Skin Exam: normal color, warm, dry, No rash Lymphatic Exam: No adenopathy SpO2 Interpretation: normal SpO2: 95 O2 Delivery: Room Air - Radiology Exams Chest X-ray Interpretation: Interpreted by me, Reviewed by me, Negative, No Pneumonia, No Pneumothorax, Nml Heart Size, No Infiltrates, Nml Mediastinum, Nml Soft Tissues, Other (confirmed by Radiologist interpretaation) Ordered Tests: Active Orders 24 hr Category Date Time Status IV Insertion STAT Care 02/05/20 07:58 Active CHEST 1 VIEW (PORTABLE) Stat Exams 02/05/20 07:21 Completed CBC W DIFF Stat Lab 02/05/20 08:05 Completed CMP Stat Lab 02/05/20 08:05 Completed HCG,QUALITATIVE URINE Stat Lab 02/05/20 08:50 Completed INFLUENZA A+B ISIDRO Stat Lab 02/05/20 07:50 Completed Lactic Acid Stat Lab 02/05/20 09:09 Completed MAGNESIUM Stat Lab 02/05/20 08:05 Completed UA W/RFX UR CULTURE Stat Lab 02/05/20 08:50 Completed VENOUS BLOOD GAS Stat Lab 02/05/20 09:09 Completed Medication Summary Discontinued Medications Generic Name Dose Route Start Last Admin Trade Name Dalton PRN Reason Stop Dose Admin Sodium Chloride 1,000 mls @ 999 mls/hr 02/05/20 07:58 02/05/20 10:16 Sodium Chloride 0.9% 1000 Ml IV 02/05/20 08:58 Infused .Q1H1M STA Infusion Sodium Chloride Confirm 02/05/20 08:38 Sodium Chloride 0.9% 1000 Ml Administered 02/05/20 08:39 Dose 1,000 mls @ ud .ROUTE .STK-MED ONE Lab/Rad Data: Laboratory Result Diagrams 02/05/20 08:05 02/05/20 08:05 Laboratory Results 02/05/20 02/05/20 02/05/20 Range/Units 09:48 09:09 09:09 WBC (4.0-10.5) K/mm3 RBC (4.1-5.4) M/mm3 Hgb (12.0-16.0) gm/dl Hct (35-47) % MCV (78-100) fl MCH (26-32) pg MCHC (32-36) g/dl RDW (11.5-14.0) % Plt Count (150-450) K/mm3 MPV (7.5-11.0) fl Gran % (36.0-66.0) % Eos # (Auto) (0-0.5) Absolute Lymphs (auto) (1.0-4.6) Absolute Monos (auto) (0.0-1.3) Lymphocytes % (24.0-44.0) % Monocytes % (0.0-12.0) % Eosinophils % (0.00-5.0) % Basophils % (0.0-0.4) % Absolute Granulocytes (1.4-6.9) Basophils # (0-0.4) pO2/FiO2 Ratio 21.0 % VBG pH 7.38 (7.32-7.42) VBG pCO2 at Pat Temp 43 (42-55) mm/Hg VBG pO2 at Pat Temp 33 (25-40) mm/Hg VBG HCO3 25.4 (22-28) meq/L VBG O2 Sat (Mike) 60.3 L (95-100) VBG Base Excess 0.0 (-2.0-2.0) VBG Hemoglobin 13.8 VBG Carboxyhemoglobin 2.3 (0.0-6.9) % T HGB POC Potassium 4.3 (3.5-5.1) Sodium (137-145) mmol/L Potassium (3.5-5.1) mmol/L Chloride (98-107) mmol/L Carbon Dioxide (22-30) mmol/L Anion Gap (5-15) MEQ/L BUN (7-17) mg/dL Creatinine (0.52-1.04) mg/dL Estimated GFR ML/MIN Glucose (74-106) mg/dL Lactic Acid 1.2 (0.4-2.0) Calcium (8.4-10.2) mg/dL Magnesium (1.6-2.3) mg/dL Total Bilirubin (0.2-1.3) mg/dL AST (14-36) U/L ALT (0-35) U/L Alkaline Phosphatase (38-126) U/L Serum Total Protein (6.3-8.2) g/dL Albumin (3.5-5.0) g/dL Urine Color (YELLOW) Urine Appearance (CLEAR) Urine pH (5-6) Ur Specific Rickman (1.005-1.025) Urine Protein (Negative) Urine Ketones (NEGATIVE) Urine Blood (0-5) [place]/ul Urine Nitrite (NEGATIVE) Urine Bilirubin (NEGATIVE) Urine Urobilinogen (0-1) mg/dL Ur Leukocyte Esterase (NEGATIVE) Urine WBC (Auto) (0-5) /HPF Urine RBC (Auto) (0-2) /HPF U Epithel Cells (Auto) (FEW) /HPF Urine Bacteria (Auto) (NEGATIVE) /HPF Urine Culture Reflexed (NO) Urine Glucose (NEGATIVE) mg/dL Urine HCG, Qual (Negative) Influenza Type A Ag (NEGATIVE) Influenza Type B Ag (NEGATIVE) Group A Strep Antibody NOT DETECTED (NEGATIVE) 02/05/20 02/05/20 02/05/20 Range/Units 08:50 08:50 08:05 WBC (4.0-10.5) K/mm3 RBC (4.1-5.4) M/mm3 Hgb (12.0-16.0) gm/dl Hct (35-47) % MCV (78-100) fl MCH (26-32) pg MCHC (32-36) g/dl RDW (11.5-14.0) % Plt Count (150-450) K/mm3 MPV (7.5-11.0) fl Gran % (36.0-66.0) % Eos # (Auto) (0-0.5) Absolute Lymphs (auto) (1.0-4.6) Absolute Monos (auto) (0.0-1.3) Lymphocytes % (24.0-44.0) % Monocytes % (0.0-12.0) % Eosinophils % (0.00-5.0) % Basophils % (0.0-0.4) % Absolute Granulocytes (1.4-6.9) Basophils # (0-0.4) pO2/FiO2 Ratio % VBG pH (7.32-7.42) VBG pCO2 at Pat Temp (42-55) mm/Hg VBG pO2 at Pat Temp (25-40) mm/Hg VBG HCO3 (22-28) meq/L VBG O2 Sat (Mike) (95-100) VBG Base Excess (-2.0-2.0) VBG Hemoglobin VBG Carboxyhemoglobin (0.0-6.9) % T HGB POC Potassium (3.5-5.1) Sodium (137-145) mmol/L Potassium (3.5-5.1) mmol/L Chloride (98-107) mmol/L Carbon Dioxide (22-30) mmol/L Anion Gap (5-15) MEQ/L BUN (7-17) mg/dL Creatinine (0.52-1.04) mg/dL Estimated GFR ML/MIN Glucose (74-106) mg/dL Lactic Acid (0.4-2.0) Calcium (8.4-10.2) mg/dL Magnesium 1.8 (1.6-2.3) mg/dL Total Bilirubin (0.2-1.3) mg/dL AST (14-36) U/L ALT (0-35) U/L Alkaline Phosphatase (38-126) U/L Serum Total Protein (6.3-8.2) g/dL Albumin (3.5-5.0) g/dL Urine Color STRAW (YELLOW) Urine Appearance SLIGHTLY CLOUDY (CLEAR) Urine pH 5.0 (5-6) Ur Specific Rickman 1.033 (1.005-1.025) Urine Protein NEGATIVE (Negative) Urine Ketones SMALL (NEGATIVE) Urine Blood NEGATIVE (0-5) [place]/ul Urine Nitrite NEGATIVE (NEGATIVE) Urine Bilirubin NEGATIVE (NEGATIVE) Urine Urobilinogen NEGATIVE (0-1) mg/dL Ur Leukocyte Esterase SMALL (NEGATIVE) Urine WBC (Auto) 6-10 (0-5) /HPF Urine RBC (Auto) 6-10 (0-2) /HPF U Epithel Cells (Auto) RARE (FEW) /HPF Urine Bacteria (Auto) RARE (NEGATIVE) /HPF Urine Culture Reflexed NO (NO) Urine Glucose >=500 (NEGATIVE) mg/dL Urine HCG, Qual NEGATIVE (Negative) Influenza Type A Ag (NEGATIVE) Influenza Type B Ag (NEGATIVE) Group A Strep Antibody (NEGATIVE) 02/05/20 02/05/20 02/05/20 Range/Units 08:05 08:05 07:50 WBC 6.4 (4.0-10.5) K/mm3 RBC 5.47 H (4.1-5.4) M/mm3 Hgb 14.3 (12.0-16.0) gm/dl Hct 45.4 (35-47) % MCV 83.0 (78-100) fl MCH 26.1 (26-32) pg MCHC 31.5 L (32-36) g/dl RDW 14.8 H (11.5-14.0) % Plt Count 270 (150-450) K/mm3 MPV 12.6 H (7.5-11.0) fl Gran % 51.6 (36.0-66.0) % Eos # (Auto) 0.06 (0-0.5) Absolute Lymphs (auto) 2.22 (1.0-4.6) Absolute Monos (auto) 0.80 (0.0-1.3) Lymphocytes % 34.7 (24.0-44.0) % Monocytes % 12.5 H (0.0-12.0) % Eosinophils % 0.9 (0.00-5.0) % Basophils % 0.3 (0.0-0.4) % Absolute Granulocytes 3.30 (1.4-6.9) Basophils # 0.02 (0-0.4) pO2/FiO2 Ratio % VBG pH (7.32-7.42) VBG pCO2 at Pat Temp (42-55) mm/Hg VBG pO2 at Pat Temp (25-40) mm/Hg VBG HCO3 (22-28) meq/L VBG O2 Sat (Mike) (95-100) VBG Base Excess (-2.0-2.0) VBG Hemoglobin VBG Carboxyhemoglobin (0.0-6.9) % T HGB POC Potassium (3.5-5.1) Sodium 133 L (137-145) mmol/L Potassium 4.3 (3.5-5.1) mmol/L Chloride 99 (98-107) mmol/L Carbon Dioxide 24 (22-30) mmol/L Anion Gap 13.3 (5-15) MEQ/L BUN 11 (7-17) mg/dL Creatinine 0.50 L (0.52-1.04) mg/dL Estimated GFR > 60.0 ML/MIN Glucose 362 H (74-106) mg/dL Lactic Acid (0.4-2.0) Calcium 9.5 (8.4-10.2) mg/dL Magnesium (1.6-2.3) mg/dL Total Bilirubin 0.30 (0.2-1.3) mg/dL AST 124 H (14-36) U/L ALT 241 H (0-35) U/L Alkaline Phosphatase 127 H (38-126) U/L Serum Total Protein 8.1 (6.3-8.2) g/dL Albumin 4.2 (3.5-5.0) g/dL Urine Color (YELLOW) Urine Appearance (CLEAR) Urine pH (5-6) Ur Specific Rickman (1.005-1.025) Urine Protein (Negative) Urine Ketones (NEGATIVE) Urine Blood (0-5) [place]/ul Urine Nitrite (NEGATIVE) Urine Bilirubin (NEGATIVE) Urine Urobilinogen (0-1) mg/dL Ur Leukocyte Esterase (NEGATIVE) Urine WBC (Auto) (0-5) /HPF Urine RBC (Auto) (0-2) /HPF U Epithel Cells (Auto) (FEW) /HPF Urine Bacteria (Auto) (NEGATIVE) /HPF Urine Culture Reflexed (NO) Urine Glucose (NEGATIVE) mg/dL Urine HCG, Qual (Negative) Influenza Type A Ag NEGATIVE (NEGATIVE) Influenza Type B Ag NEGATIVE (NEGATIVE) Group A Strep Antibody (NEGATIVE) - Progress Progress: improved Air Movement: good Progress Note: 02/05/20 10:58 Patient had a close exposure for significant time of a positive SARS-CoV-2 infection who comes in with symptoms consistent with SARS-CoV-2. Patient's lab work, influenza test, chest x-ray were negative, and she had a normal venous blood gas so should not require inpatient admission as she not require any oxygen support. I did send her home with Tylenol and Promethazine DM to help with symptomatic relief. I reviewed patient detail with signs and symptoms to return back to the emergency room and and she was given a work excuse to give her time to recuperate and she understood what signs symptoms return back to the emergency department as her SARS-CoV-2 test will not return during this visit but she is to follow this resolved up as an outpatient as we will notify her. At the time of discharge, patient was hemodynamically good condition, afebrile with no signs of hypoxia on her SPO2 monitoring throughout her time in the emergency department and no signs of respiratory distress at any time. Patient also had elevated LFTs which she will follow-up as an outpatient with her ysician when she improves symptomatically. Blood Culture(s) Obtained: No Counseled pt/family regarding: lab results, diagnosis, need for follow-up, rad results - Departure Departure Disposition: Home Clinical Impression: Cough in adult, Suspected SARS, Elevated LFTs Acute pharyngitis Qualifiers: Pharyngitis/tonsillitis etiology: unspecified etiology Qualified Code(s): J02.9 - Acute pharyngitis, unspecified Hypertension Qualifiers: Hypertension type: essential hypertension Qualified Code(s): I10 - Essential (primary) hypertension Condition: Stable Critical Care Time: No Referrals: JOHN RAY MD [Primary Care Provider] - 02/12/20 Instructions: Fever, Adult (DC), Severe Acute Respiratory Syndrome (SARS) (DC), Cough, Adult (DC), Strep Throat (DC) Additional Instructions: Due to your close exposure and your symptoms, you clinically have SARS-CoV-2 infection but do not require inpatient admission at this time. Return immediately back to emergency room for any worsening shortness of breath, productive cough, coughing up blood, diarrhea this uncontrollable, new chest pain, new abdominal pain, new back pain, or any other concerning signs or symptoms that were not present at today's emergency room visit for immediate reevaluation in the emergency department. Forms: Work/School Release Form Prescriptions: Acetaminophen 500 mg [Tylenol Extra Strength 500 mg] 1,000 mg PO Q6H PRN PRN #30 tablet PRN Reason: Fever Promethazine/Dextromethorphan [Promethazine-Dm Solution] 5 ml PO Q6-8HPRN PRN #90 ml PRN Reason: Cough
[2020-02-05] MEDS ORDERED: Sodium Chloride 0.9% 1000 ML 1,000 ML IV STA (07:58)
[2020-02-05 08:19] LABS: INFLUENZA A NEGATIVE (NEGATIVE); INFLUENZA B NEGATIVE (NEGATIVE)
[2020-02-05] MEDS ORDERED: Sodium Chloride 0.9% 1000 ML 1,000 ML ONE (08:38)
[2020-02-05 08:41] LABS: BASOPHIL % 0.3 % (0.0-0.4); Basophil (Absolute #) 0.02 (0-0.4); Eosinophil % 0.9 % (0.00-5.0); Eosinophil (Absolute #) 0.06 (0-0.5); Hematocrit 45.4 % (35-47); Hemoglobin 14.3 gm/dl (12.0-16.0); Lymphocyte (Absolute #) 2.22 (1.0-4.6); Lymphocytes % 34.7 % (24.0-44.0); Mean Corpuscular Hemoglobin 26.1 pg (26-32); Mean Corpuscular Hgb Concent. 31.5 g/dl (32-36); Mean Platelet Volume 12.6 fl (7.5-11.0); Monocytes % 12.5 % (0.0-12.0); Neutrophil % 51.6 % (36.0-66.0); Platelet Count 270 K/mm3 (150-450); Red Blood Count 5.47 M/mm3 (4.1-5.4); Red Cell Distribution Width 14.8 % (11.5-14.0); White Blood Count 6.4 K/mm3 (4.0-10.5)
--- NOTE | 2020-02-05 08:52 | XRAY ---
Indication: Fever and cough. Comparison: March 17, 2019. Portable chest again demonstrates normal heart, lungs, and bony thorax.
[2020-02-05 08:53] LABS: ALBUMIN 4.2 g/dL (3.5-5.0); ALKALINE PHOSPHATASE 127 U/L (38-126); ANION GAP 13.3 MEQ/L (5-15); BLOOD UREA NITROGEN 11 mg/dL (7-17); CHLORIDE 99 mmol/L (98-107); Calcium 9.5 mg/dL (8.4-10.2); Carbon Dioxide 24 mmol/L (22-30); EST GLOMERULAR FILTRATION RATE > 60.0 ML/MIN; Glucose 362 mg/dL (74-106); Potassium 4.3 mmol/L (3.5-5.1); SGOT/AST 124 U/L (14-36); SGPT/ALT 241 U/L (0-35); SODIUM 133 mmol/L (137-145); Total Protein 8.1 g/dL (6.3-8.2)
[2020-02-05 09:13] LABS: VBG CARBOXYHEMOGLOBIN 2.3 % T HGB (0.0-6.9); VBG HCO3- 25.4 meq/L (22-28); VBG HEMOGLOBIN 13.8; VBG O2 SATURATION 60.3 (95-100); VBG POTASSIUM 4.3 (3.5-5.1); VBG pH 7.38 (7.32-7.42)
[2020-02-05 09:40] LABS: Appearance SLIGHTLY CLOUDY (CLEAR); Bacteria RARE /HPF (NEGATIVE); Bilirubin NEGATIVE (NEGATIVE); Blood NEGATIVE Ery/ul (0-5); Epithelial Cells RARE /HPF (FEW); Glucose >=500 mg/dL (NEGATIVE); Ketones SMALL (NEGATIVE); Leukocyte Esterase SMALL (NEGATIVE); Nitrite NEGATIVE (NEGATIVE); Protein,Urine Dip NEGATIVE (Negative); Specific Gravity 1.033 (1.005-1.025); Urobilinogen NEGATIVE mg/dL (0-1)
[2020-02-05 10:09] VITALS: BP 119/85
[2020-02-05 10:53] VITALS: PULSE 102; O2SAT 95
== END 2020-02-05 11:14 | disposition home or self-care (01) ==
LOC: ED 06:11
DX: R05 Cough (principal); Z20.828 Contact with and (suspected) exposure to other viral communicable diseases; J02.9 Acute pharyngitis, unspecified; R74.8 Abnormal levels of other serum enzymes; R94.5 Abnormal results of liver function studies; I10 Essential (primary) hypertension; R50.9 Fever, unspecified; Z79.899 Other long term (current) drug therapy
CPT/HCPCS: 36000; 36415; 71045; 80053; 81001; 82805; 83605; 83735; 84703; 85025; 87400; 87651; 96360; 99284; U0003

== ENCOUNTER 2024-07-09 20:35 | Emergency (ER) | payer OTHER ==
[2024-07-09 21:28] VITALS: TEMP 98.2
[2024-07-09 22:19] VITALS: RESP 18; O2SAT 96
[2024-07-09 22:42] LABS: INFLUENZA A NEGATIVE (NEGATIVE); INFLUENZA B NEGATIVE (NEGATIVE); RESPIRATORY SYNCTIAL VIRUS NEGATIVE (NEGATIVE); SARS-CoV-2 Xpert Express NEGATIVE (NEGATIVE)
--- NOTE | 2024-07-09 23:17 | ERPHSYRPT ---
- History of Present Illness Time Seen by Provider: 07/09/24 23:34 Source: patient Exam Limitations: no limitations Patient Subjective Stated Complaint: c/o fever and cough Triage Nursing Assessment: patient brought to ED by with c/o cough, fever, and headache. patient stated that symptoms started yesterday. rates pain 4/10 in throat, no redness present in throat, states it hurts to take a deep breath. patient took Dayquil at 1000 and it didn't help symptoms, patient has temp of 98.3 upon arrival per our thermometer, lung sounds dimished on expiration, denies vomiting but has a little bit of diarrhea, vitals wnl, skin w/n/d, gait steady, doesn't appear to be in any distress at this time. Physician History: Patient is a 39-year-old female presents to our ED with a cough fever and a headache. Patient states that her symptoms started yesterday. Patient reports she is coughing frequently and is experiencing a sore throat. patient brought to ED by with c/o cough, fever, and headache. patient stated that symptoms started yesterday. rates pain 4/10 in throat, no redness present in throat, states it hurts to take a deep breath. patient took Dayquil at 1000 and it didn't help symptoms, patient has temp of 98.3 upon arrival per our thermometer, lung sounds dimished on expiration, denies vomiting but has a little bit of diarrhea, vitals wnl, skin w/n/d, gait steady, doesn't appear to be in any distress at this time. Timing/Duration: today Severity: moderate Modifying Factors: Improves With: nothing Associated Symptoms: denies symptoms Allergies/Adverse Reactions: naproxen Allergy (Severe, Verified 07/09/24 21:18) Hives Itchy Hives Home Medications: Escitalopram Oxalate [Lexapro] 20 mg PO DAILY 03/17/19 [History] Bupropion HCl 150 mg Sr [Wellbutrin SR 150 MG] 150 mg PO DAILY 10/03/23 [History] Hydrochlorothiazide 25 mg [hydroDIURIL 25 MG] 25 mg PO DAILY 10/03/23 [History] Metformin HCl 500 mg [Glucophage 500 MG] 500 mg PO DAILY 10/03/23 [History] Potassium Chloride 10 meq PO DAILY 10/03/23 [History] Valacyclovir HCl [Valacyclovir] 500 mg PO DAILY PRN PRN 10/03/23 [History] Dapagliflozin Propanediol [Farxiga] 10 mg PO DAILY 07/09/24 [History] Insulin Glargine,Hum.rec.anlog [Lantus] 36 units SQ DAILY 07/09/24 [History] Semaglutide [Ozempic] 0.25 mg SQ WEEKLY 07/09/24 [History] Hx Tetanus, Diphtheria Vaccination/Date Given: No Hx Influenza Vaccination/Date Given: Yes Hx Pneumococcal Vaccination/Date Given: No Travel Risk - International Travel Have you traveled outside of the country in past 3 weeks: No - Emerging Infectious Disease Are you exhibiting symptoms associated with any current EIDs: Yes Symptoms: Cough: New Onset, Fever, Headaches/Body Aches/ - Review of Systems Constitutional: No Symptoms, No Fever, No Chills Eyes: No Symptoms Ears, Nose, & Throat: No Symptoms Respiratory: No Symptoms, No Cough, No Dyspnea Cardiac: No Symptoms, No Chest Pain, No Edema, No Syncope Abdominal/Gastrointestinal: No Symptoms, No Abdominal Pain, No Nausea, No Vomiting, No Diarrhea Genitourinary Symptoms: No Symptoms, No Dysuria Musculoskeletal: No Symptoms, No Back Pain, No Neck Pain Skin: No Symptoms, No Rash Neurological: No Symptoms, No Dizziness, No Focal Weakness, No Sensory Changes Psychological: No Symptoms Endocrine: No Symptoms Hematologic/Lymphatic: No Symptoms Immunological/Allergic: No Symptoms All Other Systems: Reviewed and Negative - Past Medical History Pertinent Past Medical History: Yes Neurological History: No Pertinent History ENT History: No Pertinent History Cardiac History: High Cholesterol, Hypertension, Other Respiratory History: No Pertinent History Endocrine Medical History: No Pertinent History, Diabetes Type II Musculoskeletal History: No Pertinent History GI Medical History: GERD History: No Pertinent History Psycho-Social History: Depression, Anxiety Female Reproductive Disorders: No Pertinent History Other Medical History: reports she used to have depression. slightly enlarged heart, murmur as a child. - Past Surgical History Past Surgical History: Yes Neuro Surgical History: No Pertinent History Cardiac: No Pertinent History Respiratory: No Pertinent History Gastrointestinal: Appendectomy Genitourinary: No Pertinent History Musculoskeletal: No Pertinent History Female Surgical History: Section, Tubal Ligation Other Surgical History: c- section x3 - Female History Hx Last Menstrual Period: a month ago Hx Now: No - Social History Smoking Status: Never smoker Exposure to second hand smoke: No Drug Use: none - Social Determinants of Health Will the patient participate in the screening: Yes Do you worry about a steady place to live?: No Do you have any problems with any of the following?: No known problems In the past 12 months,have you had to go without utilities?: No Transportation Issues: No Has anyone in your support network made you feel unsafe?: No Have you or anyone in your house had to go w/o enough food: No - Nursing Vital Signs Nursing Vital Signs: Initial Vital Signs Temperature 98.2 F 07/09/24 21:19 Pulse Rate 96 H 07/09/24 21:19 Respiratory Rate 19 07/09/24 21:19 Blood Pressure 143/91 07/09/24 21:19 O2 Sat by Pulse Oximetry 99 07/09/24 21:19 Pain Scale Pain Intensity 4 - Physical Exam General Appearance: no apparent distress, alert Eye Exam: PERRL/EOMI, eyes nml inspection Ears, Nose, Throat Exam: normal ENT inspection, pharynx normal, moist mucous membranes Neck Exam: normal inspection, full range of motion Respiratory Exam: normal breath sounds, lungs clear, No respiratory distress Cardiovascular Exam: regular rate/rhythm Gastrointestinal/Abdomen Exam: soft, normal bowel sounds, No tenderness, No mass Back Exam: normal inspection, normal range of motion, No CVA tenderness, No vertebral tenderness Extremity Exam: normal inspection, normal range of motion, pelvis stable Neurologic Exam: alert, oriented x 3, cooperative, normal mood/affect, sensation nml, No motor deficits Skin Exam: normal color, warm, dry, No rash Lymphatic Exam: No adenopathy SpO2 Interpretation: normal SpO2: 96 O2 Delivery: Room Air - Course Nursing assessment & vital signs reviewed: Yes - Radiology Exams Chest X-ray Interpretation: Teleradiologist Report (No acute findings) Ordered Tests: Active Orders 24 hr Category Date Time Status CHEST 1 VIEW (PORTABLE) Stat Exams 07/09/24 23:17 Taken CMP Stat Lab 07/09/24 23:25 Completed D-DIMER QUANTITATIVE Stat Lab 07/09/24 23:25 Completed TROPONIN Q4H Lab 07/09/24 23:25 Completed Medication Summary Discontinued Medications Generic Name Dose Route Start Last Admin Trade Name Dalton PRN Reason Stop Dose Admin Prednisone 60 mg 07/09/24 23:36 07/09/24 23:44 Prednisone 20 Mg Tablet PO 07/09/24 23:37 60 mg STAT ONE Administration Prednisone Confirm 07/09/24 23:42 Prednisone 20 Mg Tablet Administered 07/09/24 23:43 Dose 60 mg .ROUTE .[employer] ONE Prochlorperazine Edisylate 10 mg 07/09/24 23:38 07/09/24 23:45 Prochlorperazine Edisylate 10 Mg/2 Ml Vial IM 07/09/24 23:39 10 mg STAT ONE Administration Prochlorperazine Edisylate Confirm 07/09/24 23:42 Prochlorperazine Edisylate 10 Mg/2 Ml Vial Administered 07/09/24 23:43 Dose 10 mg .ROUTE .Eutechnyx Lab/Rad Data: Laboratory Result Diagrams 07/09/24 23:25 Laboratory Results 07/09/24 07/09/24 07/09/24 Range/Units 23:25 23:25 23:25 D-Dimer 0.33 (0.0-0.50) mg/L Sodium 139 (135-145) mmol/L Potassium 3.8 (3.5-5.1) mmol/L Chloride 99 (98-107) mmol/L Carbon Dioxide 28 (22-30) mmol/L Anion Gap 15.6 H (5-15) MEQ/L BUN 15 (7-17) mg/dL Creatinine 0.64 (0.52-1.04) mg/dL Estimated GFR 114.5 ML/MIN Glucose 119 H (74-106) mg/dL Calcium 9.6 (8.4-10.2) mg/dL Total Bilirubin 0.30 (0.2-1.3) mg/dL AST 25 (14-36) U/L ALT 29 (0-35) U/L Alkaline Phosphatase 57 (38-126) U/L Troponin I < 0.012 (0.000-0.033) ng/mL Serum Total Protein 6.9 (6.3-8.2) g/dL Albumin 4.2 (3.5-5.0) g/dL Influenza Type A Ag (NEGATIVE) Influenza Type B Ag (NEGATIVE) RSV (PCR) (NEGATIVE) SARS-CoV-2 (PCR) (NEGATIVE) 07/09/24 Range/Units 22:00 D-Dimer (0.0-0.50) mg/L Sodium (135-145) mmol/L Potassium (3.5-5.1) mmol/L Chloride (98-107) mmol/L Carbon Dioxide (22-30) mmol/L Anion Gap (5-15) MEQ/L BUN (7-17) mg/dL Creatinine (0.52-1.04) mg/dL Estimated GFR ML/MIN Glucose (74-106) mg/dL Calcium (8.4-10.2) mg/dL Total Bilirubin (0.2-1.3) mg/dL AST (14-36) U/L ALT (0-35) U/L Alkaline Phosphatase (38-126) U/L Troponin I (0.000-0.033) ng/mL Serum Total Protein (6.3-8.2) g/dL Albumin (3.5-5.0) g/dL Influenza Type A Ag NEGATIVE (NEGATIVE) Influenza Type B Ag NEGATIVE (NEGATIVE) RSV (PCR) NEGATIVE (NEGATIVE) SARS-CoV-2 (PCR) NEGATIVE (NEGATIVE) - Progress Progress: improved Progress Note: 39-year-old female presents emergency department for evaluation of a cough. Physical exam otherwise unremarkable. X-ray negative for acute findings. Influenza RSV COVID-negative. Patient received oral steroids. Prescription for steroid and azithromycin forwarded to patient's pharmacy. Because patient described a pleuritic component to her pain D-dimer was ordered. D-dimer negative. Troponin negative as well. Patient discharged home. Patient voiced no other complaints or concerns. Portions of this note were created with voice recognition technology. There may be grammatical, spelling, punctuation or sound alike errors Complexity of problem addressed is moderate acute complicated. No critical care time. Complexity of data reviewed and analyzed as moderate. Test ordered test reviewed results analyzed and correlated clinically with history and physical exam. Dr. Womack independently reviewed the chest x-ray. Risk of complication and or risk of morbidity/mortality of patient management is low. Vital stable. Time spent to discharge patient is approximately 15 minutes. Plan of care established for shared decision making. No social determinants of health present to impede follow-up. Portions of this note were created with voice recognition technology. There may be grammatical, spelling, punctuation or sound alike errors 07/10/24 07:06 Counseled pt/family regarding: lab results, diagnosis, need for follow-up, rad results - Departure Departure Disposition: Home Clinical Impression: Cough, Bronchitis Condition: Stable Critical Care Time: No Referrals: JOHN RAY MD [Primary Care Provider, [facility]] - Follow up/PCP as directed Instructions: Bronchitis in adults - ED discharge instructions, Cough in adults - ED discharge instructions Additional Instructions: Discharge/Care Plan BETTINA BAKER was seen on 07/10/24 in the Emergency Room. The patient was counseled regarding Diagnosis,Lab results, Imaging studies, need for follow up and when to return to the Emergency Room. Prescriptions given: Discharge Note I have spoken with the patient and/or caregivers. I have explained the patient's condition, diagnosis and treatment plan based on the information available to me at this time. I have answered the patient's and/or caregiver's questions and addressed any concerns. The patient and/or caregivers have as good understanding of the patient's diagnosis, condition and treatment plan as can be expected at this point. The vital signs have been stable. The patient's condition is stable and appropriate for discharge from the emergency department. The patient will pursue further outpatient evaluation with the primary care physician or other designated or consulting physician as outlined in the discharge instructions. The patient and/or caregivers are agreeable to this plan of care and follow-up instructions have been explained in detail. The patient and/or caregivers have received these instruction. The patient/and or caregivers are aware that any significant change in condition or worsening of symptoms should prompt an immediate return to this or the closest emergency department or call 911. Prescriptions: Prednisone 10 mg [Deltasone 10 mg] 40 mg PO DAILY 3 Days #12 tablet Azithromycin 250 mg [Zithromax 250 MG TABLET] 250 mg PO ZPACK #6 tablet
[2024-07-09] MEDS ORDERED: Compazine 10 MG/2 ML ONE (23:42)
[2024-07-09] MEDS ORDERED: DELTASONE 20 MG ONE (23:42)
[2024-07-09] MEDS: DELTASONE 20 MG PO ONE (23:44)
[2024-07-09] MEDS: Compazine 10 MG/2 ML IM ONE (23:45)
[2024-07-09 23:56] LABS: ALBUMIN 4.2 g/dL (3.5-5.0); ANION GAP 15.6 MEQ/L (5-15); BILIRUBIN,TOTAL 0.3 mg/dL (0.2-1.3); Calcium 9.6 mg/dL (8.4-10.2); Creatinine 1 0.64 mg/dL (0.52-1.04); EST GLOMERULAR FILTRATION RATE 114.5 ML/MIN; Potassium 3.8 mmol/L (3.5-5.1); Total Protein 6.9 g/dL (6.3-8.2)
[2024-07-10 00:08] VITALS: BP 113/80; PULSE 99
--- NOTE | 2024-07-10 09:02 | XRAY ---
Indication: Cough. Fever. Comparison: February 05, 2020 Portable chest again demonstrates normal heart, lungs, and bony thorax.
== END 2024-07-10 00:27 | disposition home or self-care (01) ==
LOC: ED 20:35
DX: R05.1 Acute cough (principal); J40 Bronchitis, not specified as acute or chronic; R50.9 Fever, unspecified; R51.9 Headache, unspecified; E78.5 Hyperlipidemia, unspecified; I10 Essential (primary) hypertension; E11.9 Type 2 diabetes mellitus without complications; Z79.52 Long term (current) use of systemic steroids; Z79.4 Long term (current) use of insulin; Z79.84 Long term (current) use of oral hypoglycemic drugs; Z79.85 Long-term (current) use of injectable non-insulin antidiabetic drugs; Z79.899 Other long term (current) drug therapy
CPT/HCPCS: 0241U; 36415; 71045; 80053; 84484; 85379; 96372; 99284; A9270-GY